=== PATIENT | female | born 1975 | race Caucasian/White ===

== ENCOUNTER 2025-06-23 10:39 | Outpatient (AMB) | payer OTHER, SELFPAY ==
--- NOTE | 2025-06-23 11:24 | HO.NEPHOV_ITS ---
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 She has been a resident of [place] until she moved to [place] recently. 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 She never had renal issues in the past. Her PCP had put her on ACEI at sometime for some reason she could not identify. She continued to take it. She continues to have intermittent dizziness and it has been happening since Dec. She has not had insurance for 3 months and had not had any blood work or physician visits. Since she moved to [place] and started working she has insurance and has a PCP. Recently she had dizziness with low BP and tachycardia. She went to Urgent care who referred her to ER where she was found to have MISSY and was admitted in [facility] for 2 days. She had her ACEI held and was given fluids with improvement in renal function. She was D/Jose J and is coming in today for consultation for MISSY. She does not have edema, hematuria, hearing deficits, CAD, CHF, CVA, PAD, flank pain, nausea, vomiting, diarrhea, sinusitis, recent antibiotic intake, sore throat, epistaxis , photosensitivity , skin rashes , excess NSAID intake or any other systemic complaints. She has a diagnosis of Rheumatoid arthritis and has been on methotrexate for a few years. She also has been on Zepbound for sometime [facility] Medical History (Updated 06/23/25 @ 11:56 by Rafy Arnett MD) Solitary kidney, congenital Surgical History (Updated 06/23/25 @ 11:27 by Ramona Saenz MA) History of foot surgery H/O arthroscopic knee surgery S/P cholecystectomy Family History (Updated 06/23/25 @ 11:26 by Ramona Saenz MA) Mother Kidney disease Father Heart disease Social History (Updated 06/23/25 @ 11:26 by Ramona Saenz MA) Alcohol intake: never Patient Tobacco Use Status: Never used Tobacco Review of Systems Const All systems reviewed & are unremarkable except as noted in HPI and below Physical Exam Vital Signs: Last Vital Signs Pulse 96 06/23/25 11:33 BP 100/80 06/23/25 11:33 Pulse Ox 98 06/23/25 11:33 Oxygen Delivery Method Room Air 06/23/25 11:33 BMI result Body Mass Index 30.1 Const General: comfortable and no acute distress Orientation/consciousness: patient oriented x3 HEENT Head: Yes normocephalic Mouth: Normal oral and palatal mucosa present Eyes EOM: EOMs intact bilaterally Neck Neck: Yes supple Resp Auscultation: clear to auscultation bilaterally Cardio Jugular venous distension: no JVD Rate: regular rate GI Palpation (GI): Soft to palpation Auscultation: normal bowel sounds General: Yes no CVA tenderness Back/Spine/Pelvis Back: no CVA tenderness Skin General skin exam: no rashes or lesions noted Neuro General: patient oriented x3 and moves all extremities Extrem General: Yes no pedal edema Assessment & Plan Assessment & Plan (1) Solitary kidney, congenital: Code(s): Q60.0 - Renal agenesis, unilateral Category: Medical (2) MISSY (acute kidney injury): Code(s): N17.9 - Acute kidney failure, unspecified Category: Medical Plan MISSY likely due to tubular injury. UO good. Recently had imaging( CT scan) which did not show any obstruction. GN is in the differential given recurrent MISSY. Missy induced by Zepbound and crystal deposition by MTX is in the differential. ACEI is on hold. No NSAID's. Continue good hydration. Reduce Metoprolol to 12.5 mg bid. Hold Zepbound for now. W/U ordered. May need renal biopsy if her renal function does not settle to normal. All questions answered. F/U given Orders: Orders UA and rflx microscopic 2 Weeks N17.9 - Acute kidney failure, unspecified, Q60.0 - Renal agenesis, unilateral Calcium 2 Weeks N17.9 - Acute kidney failure, unspecified, Q60.0 - Renal agenesis, unilateral Blood Urea Nitrogen 2 Weeks N17.9 - Acute kidney failure, unspecified, Q60.0 - Renal agenesis, unilateral Creatinine 2 Weeks N17.9 - Acute kidney failure, unspecified, Q60.0 - Renal agenesis, unilateral Hepatitis C Antibody Reflex 2 Weeks N17.9 - Acute kidney failure, unspecified, Q60.0 - Renal agenesis, unilateral Anti DNA DS Antibody 2 Weeks N17.9 - Acute kidney failure, unspecified, Q60.0 - Renal agenesis, unilateral Proteinase 3 PR3 Antibodies 2 Weeks N17.9 - Acute kidney failure, unspecified, Q60.0 - Renal agenesis, unilateral Anti Glomerular Basement Memb 2 Weeks N17.9 - Acute kidney failure, unspecified, Q60.0 - Renal agenesis, unilateral Phospholipase A2 Receptor Pnl 2 Weeks N17.9 - Acute kidney failure, unspecified, Q60.0 - Renal agenesis, unilateral Protein Creatinine Ratio, Ur 2 Weeks N17.9 - Acute kidney failure, unspecified, Q60.0 - Renal agenesis, unilateral Electrolytes 2 Weeks N17.9 - Acute kidney failure, unspecified, Q60.0 - Renal agenesis, unilateral Hepatitis B Surface Antigen 2 Weeks N17.9 - Acute kidney failure, unspecified, Q60.0 - Renal agenesis, unilateral Hepatitis B Core Antibody 2 Weeks N17.9 - Acute kidney failure, unspecified, Q60.0 - Renal agenesis, unilateral Myeloperoxidase Antibody 2 Weeks N17.9 - Acute kidney failure, unspecified, Q60.0 - Renal agenesis, unilateral Complement C3 2 Weeks N17.9 - Acute kidney failure, unspecified, Q60.0 - Renal agenesis, unilateral Complement C4 2 Weeks N17.9 - Acute kidney failure, unspecified, Q60.0 - Renal agenesis, unilateral Immunofixation Pnl, Serum 2 Weeks N17.9 - Acute kidney failure, unspecified, Q60.0 - Renal agenesis, unilateral Coding Level of Care Code New Pt Level 4 (53949) Diagnoses Solitary kidney, congenital Q60.0 MISSY (acute kidney injury) N17.9
--- OUTSIDE RECORDS SUMMARY | 2025-06-23 11:26 | XMS_ITS | Clinical Summary ---
Author Organization [facility] Address [address] [place] [id number] Care Team Providers Care [employer] Name Role Phone Pcp, No Primary Care Provider Unavailabl e Allergies Active Allergy Reactions Criticality Noted Date Comments Cefaclor Rash/Dermatitis Low 05/18/2024 Penicillins Hives,Rash/Dermatitis Medium 05/18/2024 Allergic to amoxicillin, penicillin, ampicillin Medications albuterol (PROVENTIL HFA; VENTOLIN HFA) 108 (90 Base) MCG/ACT inhaler Inhale 1 puff. 02/17/2025 Active lisinopril (PRINIVIL,ZeSTRI L) 10 MG tablet Take 10 mg by mouth daily. 03/18/2025 Active metoPROLOL SUCCINATE (TOPROL-XL) 25 MG 24 hr tablet Take 25 mg by mouth daily. 03/21/2025 Active rosuvastatin (CRESTOR) 10 MG tablet Take 10 mg by mouth daily. Active traMADol (ULTRAM) 50 MG tablet Take 50 mg by mouth 4 times daily (every 6 hours) as needed. Active Encounters Date Type Department Care Team Description 05/27/2025 10:00 AM EDT Office Visit [facility] [address] [place], [place] [id number] Bhupinder Coffman MD Nguyen, Nam V, PA Hypotension, unspecified hypotension type (Primary Dx); Palpitations; Dizziness 05/27/2025 Travel from Last 3 Months Social History Tobacco Use Types Packs/Day Years Used Date Smoking Tobacco: Never Assessed Comments Unknown Sex and Gender Information Value Date Recorded Sex Assigned at Not on file Legal Sex Female 9:58 AM EDT Gender Identity Not on file Sexual Orientation Not on file Last Filed Vital Signs Vital Sign Reading Time Taken Comments Blood Pressure 76/57 05/27/2025 10:10 AM EDT BETO SOLIS Pulse 133 05/27/2025 10:10 AM EDT Temperature 36.7 C (98 F) 05/27/2025 10:10 AM EDT Respiratory Rate - - Oxygen Saturation 99% 05/27/2025 10:10 AM EDT Inhaled Oxygen Concentration - - Weight - - Height - - Body Mass Index - - Plan of Treatment Health Maintenance Due Date Last Done Comments Hepatitis C Virus Screening 1976 HIV Screening 1989 DTaP/Tdap/Td Vaccines (1 - Tdap) 1995 Hepatitis B Vaccines (1 of 3 - 19+ 3-dose series) 1995 Pap Smear (Ages 21-65) 1997 Mammogram 2016 Colonoscopy 2021 COVID-19 Vaccine ( - 2023-2 5 season) 2024 Influenza Vaccine 06/24/2025 Pneumococcal Vaccine: Pediat michael (0-5 Years) and At-Risk Patients (6 to 49 Years) Aged Out No longer eligible b ased on patient's age to complete this topic Procedures Procedure Name Priority Date/Time Associated Diagnosis Comments ECG 12-LEAD Routine 05/27/2025 10:23 AM EDT Palpitations POCT GLUCOSE, FINGERSTICK (CHARGE) Routine 05/27/2025 10:23 AM EDT Palpitations Dizziness from Last 3 Months Results * POCT Glucose, Fingerstick (05/27/2025 10:23 AM EDT) POC Glucose 99 MG/DL Lot Number 0 Sap Business Analyst Pass Pass Blood 05/27/2025 10:2 3 AM EDT JAIRO Ojeda POINT OF CARE TEST ORDERABLES F inal Result * (ABNORMAL) ECG 12 lead (05/27/2025 10:23 AM EDT) 05/27/2025 10:2 3 AM EDT Impressions Bhanu Walker PA - 05/27/2025 10:23 AM EDT Sinus tachycardia with a rate of 116. No ST elevations or depressions. No T wave inversions. JAIRO Ojeda ECG ORDERABLES Final Result from Last 3 Months Insurance [employer] HMO/POS Care Teams [employer] Relationship Specialty Start Date End Date Pcp, No PCP - General General Medicine 05/27/25
--- OUTSIDE RECORDS SUMMARY | 2025-06-23 11:26 | XMS_ITS | Clinical Summary ---
Author Organization [employer] Address [address] [place] [address] [address] [place] [address] Care Team Providers Care Marketing Researcher Name Role Phone Provider, Not In System Primary Care Provider Un available Social History Tobacco Use Types Packs/Day Years Used Date Smoking Tobacco: Never Assessed Comments Unknown Sex and Gender Information Value Date Recorded Sex Assigned at Female 09/20/2022 5:46 PM EDT Legal Sex Female 5:46 PM EDT Gender Identity Female 09/20/2022 5:46 PM EDT Sexual Orientation Straight 09/20/2022 5: 46 PM EDT Last Filed Vital Signs Vital Sign Reading Time Taken Comments Blood Pressure 156/101 05/20/2022 9:00 AM EDT Pulse 58 05/20/2022 9:00 AM EDT Temperature - - Respiratory Rate - - Oxygen Saturation 98% 05/20/2022 9:00 AM EDT Inhaled Oxygen Concentration - - Weight 85.8 kg (189 lb 4 oz) 05/20/2022 9:00 AM EDT Height 154.9 cm (5' 1 ) 05/20/2022 9:00 AM EDT Body Mass Index 35.76 05/20/2022 9:00 AM EDT Plan of Treatment Health Maintenance Due Date Last Done Comments CT Colonography 1976 Colonoscopy 1976 Colorectal Cancer Screening 1976 Depression Screening 1976 FIT DNA/Cologuard 1976 FIT 1976 FOBT 1976 Sigmoidoscopy 1976 Disability Screening 1976 Alcohol/Substance Use Screening 1988 Tobacco Screening 1988 Family Planning (PISQ) 1991 Hepatitis B Vaccines (1 of 3 - 19+ 3-dose series) 1995 Mammogram 05/20/2024 05/20/2022, 01/22, 07/13/2019, Additional history exists COVID-19 Vaccine ( season) 2024 03/21/2021, 02/05/2021 Pap Smear 05/20/2025 05/20/2022 Influenza Vaccine (#1) 2025 10/06/2019, 2016 Zoster Vaccines (1 of 2) 2026 Cervical Cancer Screening 05/20/2027 HPV/Cotest 05/20/2027 05/20/2022, 04/28/2017 DTaP/Tdap/Td Vaccines (2 - Td or Tdap) 04/23/2032 04/23/2022, 03/20/2017 RSV Patients and Patients Aged 60 years or older (1 - 1-dose 75+ series) 2051 HIB Vaccines Aged Out No longer eligi ble based on patient's age to complete this topic HPV Vaccines Aged Out No longer eligi ble based on patient's age to complete this topic Hepatitis A Vaccines Aged Out No long er eligible based on patient's age to complete this topic IPV Vaccines Aged Out No longer eligi ble based on patient's age to complete this topic Meningococcal B Vaccine Aged Out No l onger eligible based on patient's age to complete this topic Meningococcal Vaccine Aged Out No sam estefany eligible based on patient's age to complete this topic Pneumococcal Vaccine: Pediatrics (0 to 5 Years) and At-Risk Patients (6 to 49) Years Aged Out No longer eligible based on patient's age to complete this topic RSV under 20 months Aged Out No longe r eligible based on patient's age to complete this topic Rotavirus Vaccines Aged Out No longer eligible based on patient's age to complete this topic Procedures Procedure Name Priority Date/Time Associated Diagnosis Comments ZZZ HISTORICAL HPV HIGH RISK DNA WITH REFLEX TO GENOTYPE Routine 05/20/2022 4:10 PM EDT ZZZ HISTORICAL PAP SMEAR Routine 05/20/2022 4:10 PM EDT BI MAMMOGRAM SCREENING BILATERAL Routine 05/20/2022 11:17 AM EDT from Last 3 Months or Most Recently Relevant to Health Maintenance Results * HPV HIGH RISK DNA WITH REFLEX TO GENOTYPE (05/20/2022 4:10 PM EDT) HPV, High-Risk Not Detected Not Detected [facility] 05/20/2022 4:10 PM EDT us Albina Church ANP-BC HISTORICAL/NON ORDE RABLE LABS Final Result [facility] [address] * PAP SMEAR (05/20/2022 4:10 PM EDT) Clinical History None [facility] Patient Status None [facility] Specimen Adequacy Satisfactory for evaluation, endocervical/trans formation zone component present [facility] Specimen Adequacy Partially obscuring blood and inflammation [facility] High Risk Factors None [facility] HPV Reflex? No [facility] Interpretation Negative for intraepithelial lesion or malignancy [facility] Interpretation [facility] Genotype Reflex No [facility] LMP Not given [facility] Screening or Diagnostic Screening [facility] Case Report Pap Test Case: [id number] [facility] Case Report Authorizing Provider: Albina Vela MD Collected: 05/20/2022 1610 [facility] Case Report Ordering Location: [facility] Received: 05/21/2022 1610 [facility] Case Report [place] [facility] Case Report First Screen: Josefina Borrero [facility] Case Report CT(ASCP) [facility] Case Report Specimen: ThinPrep Pap Test with Imaging, Cervix [facility] Disclaimer SEE NOTES [facility] Comment:The Pap test is a sc reening test which carries an inherent false negative rate. These test results should be correlated with the patient's clinical findings and history.This Pap test was processed using an automated screening system. This Pap test result should be interpreted in the context of the latest ASCCP Management Consensus Guidelines. For information about patient management, health care providers are encouraged to refer to https://www.asccp.org/management-guidelines 05/20/2022 4:10 PM EDT us Albina Church ANP-BC HISTORICAL/NON ORDE RABLE LABS Final Result [facility] [place] [address], [place] * BI MAMMOGRAM SCREENING TOMOSYNTHESIS BILATERAL (05/20/2022 11:17 AM EDT) Anatomical Region Laterality Modality Breast Bilateral Mammography 05/20/2022 11:1 7 AM EDT Narrative 05/20/2022 1:03 PM EDT Refer to Fovea for result details Legacy Procedure: BI MAMMOGRAM SCREENING TOMOSYNTHESIS BILATERAL Procedure Note Provider, Araseli, - 03/05/2023 Refer to Fovea for result details Legacy Procedure: BI MAMMOGRAM SCREENING TOMOSYNTHESIS BILATERAL us Carmencita Waterman MD IMG BI PROCEDURES Final Result from Last 3 Months or Most Recently Relevant to Health Maintenance Care Teams Marketing Researcher Relationship Specialty Start Date End Date Provider, Not In System PCP - General Family Medicine 12/31/23
--- OUTSIDE RECORDS SUMMARY | 2025-06-23 11:26 | XMS_ITS | Clinical Summary ---
Author Organization [facility] Address [address] [place] [phone] Phone Care Team Providers Care Mold Worker Name Role Phone Saul Pinto DO Primary Care Provider [phone] Saul Pinto DO Unavailable [phone] Catarina Crain MD Unavailable [phone] Myriam Reid PA-C Unavailable [phone] Allergies Active Allergy Reactions Criticality Noted Date Comments Cefaclor Rash Low 05/18/2024 Penicillins Hives Medium 05/18/2024 Allergic to amoxicillin, penicillin, ampicillin Medications doxycycline hyclate (DORYX) 100 MG tablet Take 100 mg by mouth 2 (two) times a day. Active rosuvastatin (CRESTOR) 10 MG tablet Take 10 mg by mouth daily. Active predniSONE (DELTASONE) 10 MG tablet Take 10 mg by mouth daily with breakfast. Active traMADoL (ULTRAM) 50 mg tablet Take 50 mg by mouth every 6 (six) hours as needed for pain (specific location in comments). Active Social History Tobacco Use Types Packs/Day Years Used Date Smoking Tobacco: Every Day Child or Family Care Answer Date Record ed Do you have problems with on e of the following making it difficult for you to work, study, or receive health care? No 05/18/2024 Education Answer Date Recorded Are you interested in help w ith more adult education (for example, completing high school, GED, job training, learning the [place] language, technical skills, or developing parenting skills)? No 05/18/2024 Are you concerned about learning? Not on file 05/18/2024 No 05/18/2024 Yes 05/18/2024 Food Answer Date Recorded Within the past 6 months we worried whether our food would run out before we got money to buy more. Never True 05/18/2024 Within the past 6 months the food we bought just didn't last and we didn't have enough money to get more. Never True Residential Stability Answer Date Recor ded What is your housing situation today? I have naima sing 05/18/2024 How many times have you move d in the past 12 months? Zero (I did not move) 05/18/2024 Paying for Meds Answer Date Recorded Do you have trouble paying for medicines? I cleopatra se not to answer 05/18/2024 Paying Utility Bills Answer Date Record ed Do you have trouble paying y our heating or electricity bill? I choose not to answer 05/18/2024 Transportation Answer Date Recorded Has the lack of transportati on kept you from medical appointments or from getting medications? No 05/18/2024 Digital Access Answer Date Recorded No 04/30/2024 No 04/30/2024 Reliable internet access at home? Not on file 04/30/2024 Device with a working camera? Not on file Comments Unknown Sex and Gender Information Value Date Recorded Sex Assigned at Not on file Legal Sex Female 1:21 PM EST Gender Identity Not on file Sexual Orientation Not on file Last Filed Vital Signs Vital Sign Reading Time Taken Comments Blood Pressure 181/89 05/18/2024 11:01 AM EDT Pulse 69 05/18/2024 11:01 AM EDT Temperature 36.3 C (97.4 F) 05/18/2024 11:01 AM EDT Respiratory Rate 18 05/18/2024 11:01 AM EDT Oxygen Saturation 100% 05/18/2024 11:01 AM EDT Inhaled Oxygen Concentration - - Weight 96.3 kg (212 lb 4.9 oz) 05/18/2024 11:01 AM EDT Height 154.9 cm (5' 0.98 ) 05/18/2024 11:01 AM E DT Body Mass Index 40.14 05/18/2024 11:01 AM EDT Plan of Treatment Health Maintenance Due Date Last Done Comments Adult Td,Tdap Booster 1976 LIPID PANEL 1976 DEPRESSION SCREENING 1988 SMOKING Hx and SMOKELESS TOBACCO SCREENING 1989 HEPATITIS C SCREENING 1994 HIV ONE-TIME SCREENING (18-6 5 YEARS) 1994 PNEUMOCOCCAL VACCINES (0-49 years) (1 of 2 - PCV) 1995 PAP SMEAR 1997 SCREENING FOR DIABETES 2011 COLOGUARD 2021 COLONOSCOPY 2021 COLORECTAL CANCER SCREENING 2021 FIT TEST 2021 FOBT 2021 SIGMOIDOSCOPY 2021 VIRTUAL COLONOSCOPY 2021 MAMMOGRAM 05/20/2024 05/20/2022, 05/20/2022, 02/06/2021 COVID-19 VACCINE (1 - 2023-2 5 season) 2024 HEPATITIS A VACCINES Aged Out No long er eligible based on patient's age to complete this topic HIB VACCINES Aged Out No longer eligi ble based on patient's age to complete this topic MENINGOCOCCAL VACCINES (ACWY) Aged Out No longer eligible based on patient's age to complete this topic MENINGOCOCCAL VACCINES (B) Aged Out N o longer eligible based on patient's age to complete this topic Medical Devices Not on file Insurance [facility] [address] [address] [place] [address] [facility] Care Teams Mold Worker Relationship Specialty Start Date End Date Saul Pinto DO [address] [place] [address] PCP - General Family Medicine 04/30/24 Saul Pinto DO [address] [place] [address] Referring Physician Family Medicine 04/30/24 Catarina Crain MD [address] [place] [address] [email or web address] Primary Oncologist Medical Oncology 04/30/24 Myriam Reid PA-C [address] [place] [id number] [email or web address] 04/30/24 Additional Source Comments The information contained in this document represents components of the legal health record. It is not the complete legal health record.[facility]
--- OUTSIDE RECORDS SUMMARY | 2025-06-23 11:26 | XMS_ITS | Clinical Summary ---
Author Organization [facility] Address [address] [place] [address] Phone Care Team Providers Care Balancer Name Role Phone Naima Ashraf NP Primary Care Provider [phone] Allergies Active Allergy Reactions Criticality Noted Date Comments Amoxicillin 05/27/2025 Ampicillin 05/27/2025 Cefaclor 05/27/2025 Penicillins 05/27/2025 Medications metoprolol tartrate (LOPRESSOR) 25 mg tablet Take 1 tablet (25 mg total) by mouth 2 (two) times a day. Active tirzepatide, weight loss, (Zepbound) 12.5 mg/0.5 mL injection Inject 0.5 mL (12.5 mg total) under the skin every 7 (seven) days. Active methotrexate 2.5 mg tablet Take 6 tablets (15 mg total) by mouth 1 (one) time per week Follow directions carefully, and ask to explain any part you do not understand. Take exactly as directed. Active cyclobenzaprin e (FLEXERIL) 10 mg tablet Take 1 tablet (10 mg total) by mouth at bedtime. Active folic acid (FOLVITE) 1 mg tablet Take 2 tablets (2 mg total) by mouth 1 (one) time each day. Active rosuvastatin (CRESTOR) 10 mg tablet Take 1 tablet (10 mg total) by mouth at bedtime. Active famotidine (PEPCID) 20 mg tablet Take 1 tablet (20 mg total) by mouth 2 (two) times a day. Active cyanocobalamin (VITAMIN B-12) 1,000 mcg tablet Take 1 tablet (1,000 mcg total) by mouth 1 (one) time each day. 30 each 11 05/30/20 26 Active lisinopriL (PRINIVIL,ZEST RIL) 10 mg tablet Take 1 tablet (10 mg total) by mouth 1 (one) time each day. 05/29/20 25 Discontinu ed(Stop Taking at Discharge) Active Problems Problem Noted Date Diagnosed Date MISSY (acute kidney injury) ([facility] V24) 05/27/20 25 Encounters Date Type Department Care Team Description 05/27/2025 11:33 AM EDT - 05/29/2025 12:30 PM EDT Hospital Encounter [facility] Med Surg [address] [place] [address] Alexandra Johnson MD MISSY (acute kidney injury) ([facility] V24) (Primary Dx); Hyponatremia Discharge Disposition: Home or Self Care from Last 3 Months Surgical History Surgery Date Site/Laterality Comments CHOLECYSTECTOMY TONSILLECTOMY Medical History Medical History Date Comments Asthma Tachycardia Renal agenesis Rheumatoid arthritis ([facility] V24, [facility] V28) Family History Medical History Relation Name Comments Cardiomyopathy Father Kidney disease Mother Relation Name Status Comments Father Mother Social History Tobacco Use Types Packs/Day Years Used Date Smoking Tobacco: Former Cigarettes 1 30 1 01/12/1992 - 2022 Smokeless Tobacco: Never Alcohol Use Standard Drinks/Week Comments Never 0 (1 standard drink = 0.6 oz pur e alcohol) Interpersonal Safety Answer Date Record ed Physical Abuse 05/27/2025 Verbal Abuse 05/27/2025 Comments Unknown Sex and Gender Information Value Date Recorded Sex Assigned at Female 05/27/2025 5:24 PM EDT Legal Sex Female 11:18 AM EDT Gender Identity Female 05/27/2025 5:24 PM EDT Sexual Orientation Lesbian or [place] 05/27/2025 5: 24 PM EDT 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 Not on file Not on file Obstetrics History Last Filed Vital Signs Vital Sign Reading Time Taken Comments Blood Pressure 117/71 05/29/2025 7:40 AM EDT Pulse 87 05/29/2025 7:40 AM EDT Temperature 36.2 C (97.2 F) 05/29/2025 7:40 AM EDT Respiratory Rate 16 05/29/2025 7:40 AM EDT Oxygen Saturation 100% 05/29/2025 7:40 AM EDT Inhaled Oxygen Concentration - - Weight 75.2 kg (165 lb 12.6 oz) 05/27/2025 5:06 PM EDT Height 154.9 cm (5' 1 ) 05/27/2025 11:2 8 AM EDT Body Mass Index 31.32 05/27/2025 11:28 AM EDT Plan of Treatment Health Maintenance Due Date Last Done Comments COVID-19 Vaccine (#1) 1981 DTaP,Tdap,and Td Vaccines (1 - Tdap) 1995 Cervical Cancer Screening: P ap Smear 1997 Breast Cancer Screening 05/20/2024 05/20/2022 Depression Screening 11/24/2024 Colorectal Cancer Screening: Colonoscopy 05/27/2025 HIV Screening 05/27/2025 Hepatitis C Screening 05/27/2025 Social Influencers of Health Screening 05/27/2025 Influenza Vaccine (#1) 2025 Hepatitis B Vaccines (3 of 3 - 19+ 3-dose series) 10/28/2025 05/26/2025, 04/28/2025 HIB Vaccines Aged Out No longer eligi [...] on patient's age to complete this topic MMR Vaccines Aged Out No longer eligi ble based on patient's age to complete this topic Meningococcal ACWY Vaccine Aged Out N o longer eligible based on patient's age to complete this topic Meningococcal B Vaccine Aged Out No l onger eligible based on patient's age to complete this topic Pneumococcal Vaccine: Pediatrics (0 to 5 Years) and At-Risk Patients (6 to 49 Years) Aged Out No longer eligible b ased on patient's age to complete this topic RSV Immunization Patients Under 20 months Aged Out No longer eligible b ased on patient's age to complete this topic Varicella Vaccines Aged Out No longer eligible based on patient's age to complete this topic Procedures Procedure Name Priority Date/Time Associated Diagnosis Comments LAVENDER - EDTA Routine 05/29/2025 6:35 AM EDT EXTRA TUBES Routine 05/29/2025 6:35 AM EDT MAGNESIUM Routine 05/29/2025 6:35 AM EDT BASIC METABOLIC PANEL Routine 05/29/2025 6:35 AM EDT CREATINE KINASE STAT Add-on 05/28/2025 6:20 AM EDT BASIC METABOLIC PANEL Routine 05/28/2025 6:20 AM EDT CBC WITH AUTO DIFFERENTIAL Routine 05/28/2025 6:19 AM EDT IRON AND TIBC Routine 05/28/2025 6:19 AM EDT VITAMIN B12 AND FOLATE Routine 05/28/2025 6:19 AM EDT CBC AND DIFFERENTIAL Routine 05/28/2025 6:19 AM EDT C4 COMPLEMENT STAT 05/28/2025 6:16 AM EDT C3 COMPLEMENT STAT 05/28/2025 6:16 AM EDT MISCELLANEOUS LAB TEST Routine 05/27/2025 7:58 PM EDT ANTI-NEUTROPHILIC CYTOPLASMIC ANTIBODY Routine 05/27/2025 7:58 PM EDT ANTI-DNA ANTIBODY, DOUBLE-STRANDED Routine 05/27/2025 7:58 PM EDT CHAD IFA WITH TITER AND PATTERN Routine 05/27/2025 7:58 PM EDT RHEUMATOID FACTOR Routine 05/27/2025 7:5 8 PM EDT LACTATE, WITH REFLEX Routine 05/27/2025 4:25 PM EDT URINALYSIS WITH REFLEX MICROSCOPIC AND CULTURE STAT 05/27/2025 2:23 PM EDT URINALYSIS WITH REFLEX MICROSCOPIC AND CULTURE STAT 05/27/2025 2:[address] ABDOMEN PELVIS WO CONTRAST STAT 05/27/2025 1:50 PM EDT C-REACTIVE PROTEIN STAT Add-on 05/27/2025 11 :43 AM EDT MAGNESIUM STAT Add-on 05/27/2025 11:43 AM EDT CBC WITH AUTO DIFFERENTIAL STAT 05/27/2025 11:43 AM EDT TROPONIN I HIGH SENSITIVITY STAT 05/27/2025 11:43 AM EDT COMPREHENSIVE METABOLIC PANEL STAT 05/27/2025 11:43 AM EDT CBC AND DIFFERENTIAL STAT 05/27/2025 11:43 AM EDT ECG 12-LEAD Routine 05/27/2025 11:41 AM EDT from Last 3 Months Results * Lavender tube (05/29/2025 6:35 AM EDT) Extra Tube Hold for add-ons. 05/29/2025 9:01 AM EDT [facility] Comment:Auto resulted. Blood Venous blood specimen / Unknown 05/29/2025 6:35 AM EDT 05/29/2025 7:56 AM EDT us Alexandra Johnson MD LAB BLOOD ORDERABLES Fi nal Result [facility] [address] [place] [address], [place] [phone] * Magnesium (05/29/2025 6:35 AM EDT) Only the most recent of2 resultswithin the time period is included. [facility] Magnesium 2.2 1.7 - 2.8 mg/dL LAB CHEMISTRY METHOD 05/29/2025 8:38 AM EDMT. [facility] Blood Venous blood specimen / Unknown Venipuncture / Unknown 05/29/2025 6:35 AM EDT 05/29/2025 7:56 AM EDT Alexandra Johnson MD LAB BLOOD ORDERABLES nal Result [facility] [address] [place] [address], * (ABNORMAL) Basic metabolic panel (05/29/2025 6:35 AM EDT) Only the most recent of2 resultswithin the time period is included. [facility] Sodium 137 135 - 145 mmol/L LAB CHEMISTRY METHOD 05/29/2025 8:38 AM [facility] Potassium 4.1 3.5 - 5.1 mmol/L LAB CHEMISTRY METHOD 05/29/2025 8:38 AM [facility] Chloride 103 98 - 107 mmol/L LAB CHEMISTRY METHOD 05/29/2025 8:38 AM [facility] CO2 27 24 - 32 mmol/L LAB CHEMISTRY METHOD 05/29/2025 8:38 AM [facility] Anion Gap 7 5 - 14 LAB CHEMISTRY METHOD 05/29/2025 8:38 AM [facility] Glucose 73 70 - 199 mg/dL LAB CHEMISTRY METHOD 05/29/2025 8:38 AM [facility] BUN 20(H) 7 - 17 mg/dL LAB CHEMISTRY METHOD 05/29/2025 8:38 AM EDT [facility] Creatinine 1.85(H) 0.50 - 1.00 mg/dL LAB CHEMISTRY METHOD 05/29/2025 8:38 AM EDT [facility] eGFR 33(L) >=60 mL/min/1. 73m2 LAB CHEMISTRY METHOD 05/29/2025 8:38 AM EDT [facility] Comment:Calculation based on the Chronic Kidney Disease Epidemiology Collaboration (CKD-EPI) equation refit without adjustment for race. BUN/Creatinine Ratio 10.8(L) 12.0 - 20.0 LAB CHEMISTRY METHOD 05/29/2025 8:38 AM EDT [facility] Calcium 8.8 8.4 - 10.2 mg/dL LAB CHEMISTRY METHOD 05/29/2025 8:38 AM EDT [facility] Blood Venous blood specimen / Unknown Venipuncture / Unknown 05/29/2025 6:35 AM EDT 05/29/2025 7:56 AM EDT us Alexandra Johnson MD LAB BLOOD ORDERABLES Fi nal Result [facility] [address] [place] [address], [place] [phone] * Creatine kinase (05/28/2025 6:20 AM EDT) Pathologist [facility] Total CK 40 30 - 135 unit/L LAB CHEMISTRY METHOD 05/28/2025 11:24 AM EDT [facility] Blood Venous blood specimen / Unknown Venipuncture / Unknown 05/28/2025 6:20 AM EDT 05/28/2025 7:21 AM EDT us Alexandra Johnson MD LAB BLOOD ORDERABLES Fi nal Result [facility] [address] [place] [address], [place] [phone] * (ABNORMAL) Vitamin B12 and folate (05/28/2025 6:19 AM EDT) [facility] Vitamin B-12 149(L) 180 - 914 pcg/mL LAB CHEMISTRY METHOD 05/28/2025 2:23 PM EDT [facility] Comment:B12 Indeterminate Ra nge: 145-179 pg/mL Folate >24.0 >=3.0 ng/ml LAB CHEMISTRY METHOD 05/28/2025 2:23 PM EDT [facility] Blood Venous blood specimen / Unknown Venipuncture / Unknown 05/28/2025 6:19 AM EDT 05/28/2025 7:21 AM EDT Alexandra Johnson MD LAB BLOOD ORDERABLES nal Result Performing Organization Address [facility]/ZIP Co de Phone Number [facility] [address] [place] [address], [place] [phone] * (ABNORMAL) CBC auto differential (05/28/2025 6:19 AM EDT) Only the most recent of2 resultswithin the time period is included. [facility] WBC 4.8 4.0 - 10.5 K/mcL LAB HEMETOLOGY METHOD 05/28/2025 7:39 AM EDT [facility] RBC 2.48(L) 4.20 - 5.40 M/mcL LAB HEMETOLOGY METHOD 05/28/2025 7:39 AM EDT [facility] Hemoglobin 8.2(L) 12.5 - 16.0 g/dL LAB HEMETOLOGY METHOD 05/28/2025 7:39 AM EDT [facility] Hematocrit 24.5(L) 37.0 - 47.0 % LAB HEMETOLOGY METHOD 05/28/2025 7:39 AM [facility] MCV 98.8 78.0 - 100.0 FL LAB HEMETOLOGY METHOD 05/28/2025 7:39 AM [facility] MCH 33.1(H) 25.0 - 33.0 pcg LAB HEMETOLOGY METHOD 05/28/2025 7:39 AM [facility] MCHC 33.5 32.0 - 36.0 g/dL LAB HEMETOLOGY METHOD 05/28/2025 7:39 AM [facility] RDW 14.8 12.1 - 16.2 % LAB HEMETOLOGY METHOD 05/28/2025 7:39 AM [facility] Platelets 283 150 - 450 K/mcL LAB HEMETOLOGY METHOD 05/28/2025 7:39 AM [facility] MPV 9.2 7.4 - 11.4 FL LAB HEMETOLOGY METHOD 05/28/2025 7:39 AM [facility] Neutrophils Relative 53.6 44.0 - 74.0 % LAB HEMETOLOGY METHOD 05/28/2025 7:39 AM [facility] Lymphocytes Relative 36.6 20.0 - 48.0 % LAB HEMETOLOGY METHOD 05/28/2025 7:39 AM [facility] Monocytes Relative 4.2 2.0 - 12.0 % LAB HEMETOLOGY METHOD 05/28/2025 7:39 AM [facility] Eosinophils Relative 5.0 0.0 - 6.0 % LAB HEMETOLOGY METHOD 05/28/2025 7:39 AM [facility] Basophils Relative 0.4 0.0 - 2.0 % LAB HEMETOLOGY METHOD 05/28/2025 7:39 AM [facility] Neutrophils Absolute 2.58 1.80 - 7.80 K/mcL LAB HEMETOLOGY METHOD 05/28/2025 7:39 AM EDT [facility] Lymphocytes Absolute 1.76 1.00 - 3.20 K/mcL LAB HEMETOLOGY METHOD 05/28/2025 7:39 AM EDT [facility] Monocytes Absolute 0.20 0.00 - 0.80 K/mcL LAB HEMETOLOGY METHOD 05/28/2025 7:39 AM EDT [facility] Eosinophils Absolute 0.24 0.00 - 0.50 K/mcL LAB HEMETOLOGY METHOD 05/28/2025 7:39 AM EDT [facility] Basophils Absolute <0.03 0.00 - 0.20 K/mcL LAB HEMETOLOGY METHOD 05/28/2025 7:39 AM EDT [facility] Blood Venous blood specimen / Unknown Venipuncture / Unknown 05/28/2025 6:19 AM EDT 05/28/2025 7:21 AM EDT Alexandra Johnson MD LAB BLOOD ORDERABLES Fi nal Result [facility] [address] [place] [address], [place] [phone] * (ABNORMAL) Iron and TIBC (05/28/2025 6:19 AM EDT) Iron 125 37 - 170 mcg/dL LAB CHEMISTRY METHOD 05/28/2025 2:01 PM EDT [facility] UIBC 80(L) 155 - 355 mcg/dL LAB CHEMISTRY METHOD 05/28/2025 2:01 PM EDT [facility] TIBC 205(L) 250 - 450 mcg/dL LAB CHEMISTRY METHOD 05/28/2025 2:01 PM EDT [facility] Iron Saturation 61(H) 20 - 45 % LAB CHEMISTRY METHOD 05/28/2025 2:01 PM EDT [facility] Blood Venous blood specimen / Unknown Venipuncture / Unknown 05/28/2025 6:19 AM EDT 05/28/2025 7:21 AM EDT us Alexandra Johnson MD LAB BLOOD ORDERABLES Fi nal Result [facility] [address] [place] [address], [place] [phone] * C3 complement (05/28/2025 6:16 AM EDT) C3 Complement 126 87 - 200 mg/dL LAB CHEMISTRY METHOD 05/28/2025 7:10 PM EDT [facility] Blood Venous blood specimen / Unknown Venipuncture / Unknown 05/28/2025 6:16 AM EDT 05/28/2025 11:07 AM EDT us Alexandra Johnson MD LAB BLOOD ORDERABLES Fi nal Result Performing Organization Address City/[facility]/ZIP Co de Phone Number [facility] [address] [place] [address], [place] [phone] * C4 complement (05/28/2025 6:16 AM EDT) C4 Complement 50 19 - 52 mg/dL LAB CHEMISTRY METHOD 05/28/2025 7:18 PM EDT [facility] Blood Venous blood specimen / Unknown Venipuncture / Unknown 05/28/2025 6:16 AM EDT 05/28/2025 11:07 AM EDT us Alexandra Johnson MD LAB BLOOD ORDERABLES Fi nal Result [facility] [address] [place] [address], [place] [phone] * CHAD IFA with titer and pattern (05/27/2025 7:58 PM EDT) Pathologist [facility] Antinuclear Antibody Negative Negative 07/2025 11:[address] [facility] Comment:CHAD performed by ind irect immunofluorescence (IFA) using HEp-2 substrate. CHAD Titer TNP <1:80 Titer 06/01/2025 11:[address] [facility] CHAD Pattern TNP 06/01/2025 11:[address] [facility] Comment: Test performed at [facility], [address], [place] [address] Edelmira Sosa MD, PhD - Pacs Specialist Blood Venous blood specimen / Unknown Venipuncture / Unknown 05/27/2025 7:58 PM EDT 05/27/2025 8:08 PM EDT Alexandra Johnson MD LAB BLOOD ORDERABLES Fi nal Result [facility] [address] [place] [address] * CYCLIC CITRULLINATED PEPTIDE ANTIBODY IGG AND IGA - Miscellaneous Test (05/27/2025 7:58 PM EDT) [facility] Miscellaneous Test See Below 06/07/2025 11:[address] [facility] Comment: Cyclic Citrullinated Peptide Antibody, IgG and IgA Test Result Flag Ref Range Cyclic Citrullinated Peptide Ab, IgG/A 2 0-19 Units INTERPRETIVE INFORMATION: Cyclic Citrullinated Peptide Ab, IgG/A 19 Units or less ................... Negative 20-39 Units ........................ Weak Positive 40-59 Units ........................ Moderate Positive 60 Units or greater ................ Strong Positive A positive result for cyclic citrullinated peptide (CCP) antibodies in conjunction with consistent clinical features may be suggestive of rheumatoid arthritis (RA). Anti-CCP, IgG/IgA antibodies are present in about 66-74 percent of RA patients and have specificities of 96-99 percent. Detection of IgA antibodies in addition to the usual IgG antibodies enhances the sensitivity due to some RA patients having IgA antibodies to CCP in the absence of IgG. These autoantibodies may be present in the preclinical phase of disease, are associated with future RA development, and may predict radiographic joint destruction. Patients with weak positive results should be monitored and testing repeated. Performed by [facility] [address] [place] [id number] Javon Packer MD, PhD, Senior Front End Engineer Serum 05/27/2025 7:58 PM EDT 05/31/2025 7:41 AM EDT Alexandra Johnson MD LAB BLOOD ORDERABLES Fi nal Result [facility] [address] [place] [address] * DNA antibody, double-stranded (05/27/2025 7:58 PM EDT) [facility] Signature DNA (ds) Antibody 1.7 <10.0 IU/mL 06/01/2025 11:[address] [facility] Comment: INTERPRETATION: Negative Test performed at [facility], [address] , [place], [place] [id number] Edelmira Sosa MD, PhD - Pacs Specialist Blood Venous blood specimen / Unknown Venipuncture / Unknown 05/27/2025 7:58 PM EDT 05/27/2025 8:08 PM EDT Alexandra Johnson MD LAB BLOOD ORDERABLES Fi nal Result [facility] [address] [place] [address] * Anti-neutrophilic cytoplasmic antibody (05/27/2025 7:58 PM EDT) P-ANCA <1:20 <1:20 Titer 06/01/2025 2:03 PM EDT [facility] C-ANCA <1:20 <1:20 Titer 06/01/2025 2:03 PM EDT [facility] Comment: Test performed at [facility], [address] , [place] [address] Edelmira Sosa MD, PhD - Pacs Specialist Blood Venous blood specimen / Unknown Venipuncture / Unknown 05/27/2025 7:58 PM EDT 05/27/2025 8:08 PM EDT Alexandra Johnson MD LAB BLOOD ORDERABLES Fi nal Result [facility] [address] [place] [address] * Rheumatoid factor (05/27/2025 7:58 PM EDT) Pathologist [facility] Rheumatoid Factor <10.0 <=15.0 I Unit/mL LAB CHEMISTRY METHOD 05/28/2025 2:54 PM EDT [facility] Blood Venous blood specimen / Unknown Venipuncture / Unknown 05/27/2025 7:58 PM EDT 05/27/2025 8:08 PM EDT us Alexandra Johnson MD LAB BLOOD ORDERABLES Fi nal Result [facility] [address] [place] [address], [place] [phone] * Lactate, with reflex (05/27/2025 4:25 PM EDT) Pathologist [facility] LACTIC ACID 0.9 <=2.0 mmol/L LAB BLOOD GAS METHOD 05/27/2025 4:32 PM EDT [facility] Blood Venous blood specimen / Unknown Venipuncture / Unknown 05/27/2025 4:25 PM EDT 05/27/2025 4:28 PM EDT Alexandra Johnson MD LAB BLOOD ORDERABLES Fi nal Result [facility] [address] [place] [address], [place] [phone] * (ABNORMAL) Urinalysis with reflex microscopic and culture (05/27/2025 2:23 PM EDT) Color, Urine Straw(A) Colorless, Yellow LAB URINALYSIS - AUTOMATED METHOD 05/27/2025 2:28 PM EDT [facility] Clarity, Urine Clear Clear LAB URINALYSIS - AUTOMATED METHOD 05/27/2025 2:28 PM EDT [facility] Specific [place] Urine <=1.005 1.005 - 1.030 LAB URINALYSIS - AUTOMATED METHOD 05/27/2025 2:28 PM EDMT. [facility] pH, Urine 5.5 5.0 - 8.0 pH LAB URINALYSIS - AUTOMATED METHOD 05/27/2025 2:28 PM EDMT. [facility] Leukocytes, Urine Trace(A) Negative WBCs/mcL LAB URINALYSIS - AUTOMATED METHOD 05/27/2025 2:28 PM EDMT. [facility] Nitrite, Urine Negative Negative LAB URINALYSIS - AUTOMATED METHOD 05/27/2025 2:28 PM EDMT. [facility] Protein, Urine Negative Negative mg/dL LAB URINALYSIS - AUTOMATED METHOD 05/27/2025 2:28 PM EDMT. [facility] Glucose, Urine Negative Negative mg/dL LAB URINALYSIS - AUTOMATED METHOD 05/27/2025 2:28 PM EDMT. [facility] Ketones, Urine Negative Negative mg/dL LAB URINALYSIS - AUTOMATED METHOD 05/27/2025 2:28 PM EDT [facility] Blood, Urine Negative Negative mg/dL LAB URINALYSIS - AUTOMATED METHOD 05/27/2025 2:28 PM EDT [facility] Urine Urine specimen obtained by clean catch procedure / Unknown Non-blood Collection / Unknown 05/27/2025 2:23 PM EDT 05/27/2025 2:26 PM EDT us Alexandra Johnson MD LAB URINE ORDERABLES Fi nal Result [facility] [address] [place] [address], [place] [phone] * CT Abdomen Pelvis wo Contrast (05/27/2025 1:50 PM EDT) Anatomical Region Laterality Modality Body Computed Tomogra phy 05/27/2025 2:52 PM EDT Impressions 05/27/2025 2:57 PM EDT 1. The left kidney is not seen, and may be surgically or congenitally absent. The right kidney is unremarkable, and there is no urinary stone or hydroureteronephrosis. 2. Aortoiliac atherosclerosis. Report reviewed and signed by : Dr. Robyn Mcdonald on 05/27/2025 2:57 PM. Workstation Name - [id number] -------- FINAL REPORT -------- Dictated By: Robyn Mcdonald Dictated Date: 05/27/2025 14:52 ET Assigned Physician: Robyn Mcdonald Reviewed and Electronically Signed By: Robyn Mcdonald Signed Date: 05/27/2025 14:57 ET Workstation ID: [id number] Transcribed By: Self Edit Transcribed Date: 05/27/2025 14:52 ET Narrative 05/27/2025 2:[address] OF THE ABDOMEN AND PELVIS WITHOUT IV CONTRAST CLINICAL HISTORY: Cr elevation, urologic obstruction? TECHNIQUE: Serial axial images obtained. Sagittal reconstructed images obtained. Coronal reconstructed images obtained. Exam is performed without intravenous contrast. Per PQRS, CT exam is performed using one or more of the following dose reduction techniques: Automated exposure control, adjustment of the mA and/or KV according to patient size, or use of iterative reconstruction techniques. COMPARISON: None FINDINGS: HEART: Normal sized heart. LOWER THORAX: No pleural effusion seen. No consolidation. VISUALIZED CHEST DORSEY: Visualized chest dorsey are unremarkable. VISCERA: Appearance is unremarkable. VASCULATURE: Aortoiliac atherosclerosis. ESOPHAGUS: Visualized portions of the esophagus are unremarkable. STOMACH: Appearance is unremarkable. PANCREAS: Appearance is unremarkable. GALLBLADDER: Status post cholecystectomy. LIVER: Appearance is unremarkable. ADRENALS: Appearance is unremarkable. SPLEEN: Appearance is unremarkable. KIDNEYS: The left kidney is not seen, and may be surgically or congenitally absent. Unremarkable right kidney. No urinary stone or hydroureteronephrosis. BLADDER: Appearance is unremarkable. GENITAL: Appearance is unremarkable. SMALL BOWEL: Appearance is unremarkable. Negative for small bowel dilatation. APPENDIX: Normal appendix. COLON: Appearance is unremarkable. ABDOMINAL/PELVIC DORSEY: Small fat-containing umbilical hernia. BONES: Degenerative changes of the spine, including degenerative disc disease at L5-S1. Procedure Note Robyn Mcdonald MD - 05/27/2025 CT OF THE ABDOMEN AND PELVIS WITHOUT IV CONTRAST CLINICAL HISTORY: Cr elevation, urologic obstruction? TECHNIQUE: Serial axial images obtained. Sagittal reconstructed images obtained. Coronal reconstructed images obtained. Exam is performed without intravenous contrast. Per PQRS, CT exam is performed using one or more of the following dosereduction techniques: Automated exposure control, adjustment of the mAand/or KV according to patient size, or use of iterative reconstructiontechniques. COMPARISON: None FINDINGS: HEART: Normal sized heart. LOWER THORAX: No pleural effusion seen. No consolidation. VISUALIZED CHEST DORSEY: Visualized chest dorsey are unremarkable. VISCERA: Appearance is unremarkable. VASCULATURE: Aortoiliac atherosclerosis. ESOPHAGUS: Visualized portions of the esophagus are unremarkable. STOMACH: Appearance is unremarkable. PANCREAS: Appearance is unremarkable. GALLBLADDER: Status post cholecystectomy. LIVER: Appearance is unremarkable. ADRENALS: Appearance is unremarkable. SPLEEN: Appearance is unremarkable. KIDNEYS: The left kidney is not seen, and may be surgically orcongenitally absent. Unremarkable right kidney. No urinary stone orhydroureteronephrosis. BLADDER: Appearance is unremarkable. GENITAL: Appearance is unremarkable. SMALL BOWEL: Appearance is unremarkable. Negative for small boweldilatation. APPENDIX: Normal appendix. COLON: Appearance is unremarkable. ABDOMINAL/PELVIC DORSEY: Small fat-containing umbilical hernia. BONES: Degenerative changes of the spine, including degenerative discdisease at L5-S1. IMPRESSION: 1. The left kidney is not seen, and may be surgically or congenitallyabsent. The right kidney is unremarkable, and there is no urinary stoneor hydroureteronephrosis. 2. Aortoiliac atherosclerosis. Report reviewed and signed by : Dr. Robyn Mcdonald on 05/27/2025 2:57 PM.Workstation Name - [id number] -------- FINAL REPORT -------- Dictated By: Robyn Mcdonald Dictated Date: 05/27/2025 14:52 ET Assigned Physician: Robyn Mcdonald Reviewed and Electronically Signed By: Robyn Mcdonald Signed Date: 05/27/2025 14:57 ET Workstation ID: [id number] Transcribed By: Self Edit Transcribed Date: 05/27/2025 14:52 ET us Jaylin GILL IMG CT PROCEDURES Final Res ult * Troponin I high sensitivity (05/27/2025 11:43 AM EDT) High Sensitivity Troponin I 3 0 - 14 ng/L LAB CHEMISTRY METHOD 05/27/2025 12:13 PM EDT [facility] Blood Venous blood specimen / Unknown Venipuncture / Unknown 05/27/2025 11:43 AM EDT 05/27/2025 11:45 AM EDT [facility] - 05/27/2025 12:13 PM EDT HSTnI results stratify to HIGH RISK category if any value >100 ng/L or delta at 1 hour is greater than or equal to 15 ng/L (male and female). Note: Delta values are not applicable if symptoms began more than 12 hours pre-arrival. Risk stratification should include the calculation of the HEART score. Testing performed using [employer] Access AccuTnI+3 Assay. us Alexandra Johnson MD LAB BLOOD ORDERABLES Fi nal Result [facility] [address] [place] [address], [place] [phone] * C-reactive protein (05/27/2025 11:43 AM EDT) [facility] C-Reactive Protein <0.5 <=0.9 mg/dL LAB CHEMISTRY METHOD 05/27/2025 4:44 PM EDT [facility] Blood Venous blood specimen / Unknown Venipuncture / Unknown 05/27/2025 11:43 AM EDT 05/27/2025 11:45 AM EDT Alexandra Johnson MD LAB BLOOD ORDERABLES Fi nal Result Performing Organization Address [facility]/ZIP Co de Phone Number [facility] [address] [place] [address], [place] [phone] * (ABNORMAL) Comprehensive metabolic panel (05/27/2025 11:43 AM EDT) [facility] Sodium 132(L) 135 - 145 mmol/L LAB CHEMISTRY METHOD 05/27/2025 12:09 PM EDT [facility] Potassium 4.0 3.5 - 5.1 mmol/L LAB CHEMISTRY METHOD 05/27/2025 12:09 PM EDT [facility] Comment:Slight Hemolysis may affect test result(s). Chloride 100 98 - 107 mmol/L LAB CHEMISTRY METHOD 05/27/2025 12:09 PM EDT [facility] CO2 21(L) 24 - 32 mmol/L LAB CHEMISTRY METHOD 05/27/2025 12:09 PM EDT [facility] Anion Gap 11 5 - 14 LAB CHEMISTRY METHOD 05/27/2025 12:09 PM [facility] Glucose 96 70 - 199 mg/dL LAB CHEMISTRY METHOD 05/27/2025 12:09 PM [facility] BUN 33(H) 7 - 17 mg/dL LAB CHEMISTRY METHOD 05/27/2025 12:09 PM [facility] Creatinine 3.15(H) 0.50 - 1.00 mg/dL LAB CHEMISTRY METHOD 05/27/2025 12:09 PM [facility] eGFR 18(L) >=60 mL/min/1. 73m2 LAB CHEMISTRY METHOD 05/27/2025 12:09 PM [facility] Comment:Calculation based on the Chronic Kidney Disease Epidemiology Collaboration (CKD-EPI) equation refit without adjustment for race. BUN/Creatinine Ratio 10.5(L) 12.0 - 20.0 LAB CHEMISTRY METHOD 05/27/2025 12:09 PM [facility] Calcium 9.7 8.4 - 10.2 mg/dL LAB CHEMISTRY METHOD 05/27/2025 12:09 PM [facility] AST (SGOT) 18 5 - 40 unit/L LAB CHEMISTRY METHOD 05/27/2025 12:09 PM [facility] Comment:Slight Hemolysis may affect test result(s). ALT (SGPT) 8 7 - 52 unit/L LAB CHEMISTRY METHOD 05/27/2025 12:09 PM [facility] Alkaline Phosphatase 50 34 - 104 unit/L LAB CHEMISTRY METHOD 05/27/2025 12:09 PM [facility] Total Protein 7.7 6.4 - 8.5 g/dL LAB CHEMISTRY METHOD 05/27/2025 12:09 PM [facility] Albumin 4.4 3.5 - 5.0 g/dL LAB CHEMISTRY METHOD 05/27/2025 12:09 PM [facility] Total Bilirubin 0.4 0.3 - 1.0 mg/dL LAB CHEMISTRY METHOD 05/27/2025 12:09 PM EDT [facility] Blood Venous blood specimen / Unknown Venipuncture / Unknown 05/27/2025 11:43 AM EDT 05/27/2025 11:45 AM EDT Alexandra Johnson MD LAB BLOOD ORDERABLES Fi nal Result Performing Organization Address [facility] de Phone Number [facility] [address] [place] [address], [place] [phone] * ECG 12 lead (05/27/2025 11:41 AM EDT) Ventricular Rate ECG 117 BPM GEMUSE Atrial Rate 117 BPM GEMUSE P-R Interval 116 ms GEMUSE QRS Duration 84 ms GEMUSE Q-T Interval 314 ms GEMUSE QTc 438 ms GEMUSE P Wave [place] 44 degrees GEMUSE R [place] 48 degrees GEMUSE T [place] 23 degrees GEMUSE ECG Interpretation Sinus tachycardia Otherwise normal ECG No previous ECGs available Confirmed by Jude Baptiste ([id number]) on 05/29/2025 12:45:17 PM GEMUSE 05/27/2025 11:4 1 AM EDT 05/29/2025 12:45 PM EDT us Alexandra Johnson MD ECG ORDERABLES Final R esult Performing Organization Address City/[facility] Co de Phone Number GEMUSE from Last 3 Months Insurance AETNA AETNA Advance Directives * Full Code - Default (Latest Code Status on File) Date Activated Date Inactivated Comments 05/27/2025 4:02 PM 05/29/2025 3:03 PM This is order is used when code status has not been discussed with the patient, or code status is otherwise unknown/unconfirmed To update the patient's code status, place a code status order. Do not modify or discontinue any currently active code status orders. Care Teams Balancer Relationship Specialty Start Date End Date Naima Ashraf NP [address] [place] [address] PCP - General Internal Medicine 06/17/25
--- OUTSIDE RECORDS SUMMARY | 2025-06-23 11:26 | XMS_ITS ---
Author Name [facility] Organization Unknown Results Test Name/Text Value Interpretation Date Range Source Magnesium SerPl-mCnc 2.2 mg/dL 05/29/2025 1.7 - 2.8 [facility] CO2 SerPl-sCnc 27.0 mmol/L 05/29/2025 24 - 32 [facility] Calcium SerPl-mCnc 8.8 mg/dL 05/29/2025 8.4 - 10.2 [facility] Anion Gap SerPl Calc-sCnc 7.0 05/29/2025 5 - 14 [facility] Creat SerPl-mCnc 1.85 mg/dL Above high normal 05/29/2025 0.5 - 1 [facility] Chloride SerPl-sCnc 103.0 mmol/L 05/29/2025 98 - 1 07 [facility] BUN SerPl-mCnc 20.0 mg/dL Above high normal 05/29/2025 7 - 1 7 [facility] eGFRcr SerPlBld CKD-EPI 2020 33.0 mL/min/1.73m2 Below low normal 05/29/2025 - [facility] Sodium SerPl-sCnc 137.0 mmol/L 05/29/2025 135 - 14 5 [facility] BUN/Creat SerPl 10.8 Below low normal 05/29/2025 12 - 2 0 [facility] Glucose SerPl-mCnc 73.0 mg/dL 05/29/2025 70 - 199 [facility] Potassium SerPl-sCnc 4.1 mmol/L 05/29/2025 3.5 - 5.1 [facility] CK SerPl-cCnc 40.0 unit/L 05/28/2025 30 - 135 [facility] Calcium SerPl-mCnc 8.3 mg/dL Below low normal 05/28/2025 8.4 - 10.2 [facility] Glucose SerPl-mCnc 81.0 mg/dL 05/28/2025 70 - 199 [facility] Chloride SerPl-sCnc 107.0 mmol/L 05/28/2025 98 - 1 07 [facility] CO2 SerPl-sCnc 24.0 mmol/L 05/28/2025 24 - 32 [facility] eGFRcr SerPlBld CKD-EPI 2020 25.0 mL/min/1.73m2 Below low normal 05/28/2025 - [facility] Sodium SerPl-sCnc 136.0 mmol/L 05/28/2025 135 - 14 5 [facility] BUN SerPl-mCnc 25.0 mg/dL Above high normal 05/28/2025 7 - 1 7 [facility] Creat SerPl-mCnc 2.31 mg/dL Above high normal 05/28/2025 0.5 - 1 [facility] Anion Gap SerPl Calc-sCnc 5.0 05/28/2025 5 - 14 [facility] Potassium SerPl-sCnc 4.0 mmol/L 05/28/2025 3.5 - 5.1 [facility] BUN/Creat SerPl 10.8 Below low normal 05/28/2025 12 - 2 0 [facility] Vit B12 SerPl-mCnc 149.0 pcg/mL Below low normal 05/28/2025 180 - 914 [facility] Folate SerPl-mCnc >24.0 ng/ml 05/28/2025 - [facility] Iron SerPl-mCnc 125.0 mcg/dL 05/28/2025 37 - 170 [facility] TIBC SerPl-mCnc 205.0 mcg/dL Below low normal 05/28/2025 250 - 450 [facility] Iron Satn MFr SerPl 61.0 % Above high normal 05/28/2025 2 0 - 45 [facility] UIBC SerPl-mCnc 80.0 mcg/dL Below low normal 05/28/2025 155 - 355 [facility] MCH RBC Qn Auto 33.1 pcg Above high normal 05/28/2025 25 - 33 [facility] Basophils NFr Bld Auto 0.4 % 05/28/2025 0 - 2 [facility] RBC Auto 98.8 FL 05/28/2025 78 - 100 [facility] Platelet # Bld Auto 283.0 K/mcL 05/28/2025 150 - 4 50 [facility] Eosinophil # Bld Auto 0.24 K/mcL 05/28/2025 0 - 0.5 [facility] Lymphocytes NFr Bld Auto 36.6 % 05/28/2025 20 - 48 [facility] MCHC RBC Auto-EntMCnc 33.5 g/dL 05/28/2025 32 - 36 [facility] Hgb Bld-mCnc 8.2 g/dL Below low normal 05/28/2025 12.5 - 16 [facility] Lymphocytes # Bld Auto 1.76 K/mcL 05/28/2025 1 - 3.2 [facility] Neutrophils # Bld Auto 2.58 K/mcL 05/28/2025 1.8 - 7.8 [facility] Monocytes NFr Bld Auto 4.2 % 05/28/2025 2 - 12 [facility] RBC # Bld Auto 2.48 M/mcL Below low normal 05/28/2025 4.2 - 5.4 [facility] Monocytes # Bld Auto 0.2 K/mcL 05/28/2025 0 - 0.8 [facility] Hct VFr Bld Auto 24.5 % Below low normal 05/28/2025 37 - 47 [facility] RDW RBC Auto 14.8 % 05/28/2025 12.1 - 16.2 [facility] PMV Bld Auto 9.2 FL 05/28/2025 7.4 - 11.4 [facility] Neutrophils NFr Bld Auto 53.6 % 05/28/2025 44 - 74 [facility] Basophils # Bld Auto <0.03 K/mcL 05/28/2025 0 - 0.2 [facility] WBC # Bld Auto 4.8 K/mcL 05/28/2025 4 - 10.5 [facility] Eosinophil NFr Bld Auto 5.0 % 05/28/2025 0 - 6 [facility] C4 SerPl-mCnc 50.0 mg/dL 05/28/2025 19 - 52 [facility] C3 SerPl-mCnc 126.0 mg/dL 05/28/2025 87 - 200 [facility] Test performance info Spec See Below 06/07/2025 [facility] ANCA Ab Titr Ser IF <1:20 06/01/2025 - [facility] p-ANCA Titr Ser IF <1:20 06/01/2025 - [facility] dsDNA IgG SerPl IA-aCnc 1.7 IU/mL 06/01/2025 - 10 [facility] CHAD Pat Ser IF-Imp TNP 06/01/2025 [facility] CHAD Ser Ql HEp2 subst Negative 06/01/2025 - [facility] CHAD Titr Ser HEp2 subst TNP 06/01/2025 - [facility] Rheumatoid fact SerPl-aCnc <10.0 I Unit/mL 05/28/2025 - [facility] LACTIC ACID 0.9 mmol/L 05/27/2025 - [facility] Glucose Ur Ql Negative 05/27/2025 - [facility] Clarity Ur Clear 05/27/2025 - [facility] Nitrite Ur Ql Negative 05/27/2025 - [facility] pH Ur 5.5 pH 05/27/2025 5 - 8 [facility] Ketones Ur-mCnc Negative 05/27/2025 - [facility] Color Ur Straw Abnormal 05/27/2025 - [facility] Hgb Ur Ql Negative 05/27/2025 - [facility] Leukocyte esterase Ur Ql Strip Trace Abnormal 05/27/2025 - [facility] Prot Ur Strip-mCnc Negative 05/27/2025 - [facility] Sp Gr Ur <=1.005 05/27/2025 1.005 - 1.03 [facility] CRP SerPl-mCnc <0.5 mg/dL 05/27/2025 - [facility] Magnesium SerPl-mCnc 1.8 mg/dL 05/27/2025 1.7 - 2.8 [facility] Troponin I SerPl HS-mCnc 3.0 ng/L 05/27/2025 0 - 14 [facility] Prot SerPl-mCnc 7.7 g/dL 05/27/2025 6.4 - 8.5 [facility] Calcium SerPl-mCnc 9.7 mg/dL 05/27/2025 8.4 - 10.2 [facility] Potassium SerPl-sCnc 4.0 mmol/L 05/27/2025 3.5 - 5.1 [facility] Albumin SerPl-mCnc 4.4 g/dL 05/27/2025 3.5 - 5 [facility] Glucose SerPl-mCnc 96.0 mg/dL 05/27/2025 70 - 199 [facility] ALT SerPl-cCnc 8.0 unit/L 05/27/2025 7 - 52 [facility]_ [facility] BUN SerPl-mCnc 33.0 mg/dL Above high normal 05/27/2025 7 - 1 7 [facility] BUN/Creat SerPl 10.5 Below low normal 05/27/2025 12 - 2 0 [facility] CO2 SerPl-sCnc 21.0 mmol/L Below low normal 05/27/2025 24 - 32 [facility] Sodium SerPl-sCnc 132.0 mmol/L Below low normal 05/27/2025 1 35 - 145 [facility] Creat SerPl-mCnc 3.15 mg/dL Above high normal 05/27/2025 0.5 - 1 [facility] Anion Gap SerPl Calc-sCnc 11.0 05/27/2025 5 - 14 [facility] Bilirub SerPl-mCnc 0.4 mg/dL 05/27/2025 0.3 - 1 [facility] AST SerPl-cCnc 18.0 unit/L 05/27/2025 5 - 40 CT [facility] eGFRcr SerPlBld CKD-EPI 2020 18.0 mL/min/1.73m2 Below low normal 05/27/2025 - [facility] Chloride SerPl-sCnc 100.0 mmol/L 05/27/2025 98 - 1 07 [facility] ALP SerPl-cCnc 50.0 unit/L 05/27/2025 34 - 104 [facility] RBC # Bld Auto 3.11 M/mcL Below low normal 05/27/2025 4.2 - 5.4 [facility] Basophils NFr Bld Auto 0.7 % 05/27/2025 0 - 2 [facility] WBC # Bld Auto 9.0 K/mcL 05/27/2025 4 - 10.5 [facility] MCH RBC Qn Auto 33.1 pcg Above high normal 05/27/2025 25 - 33 [facility] Platelet # Bld Auto 359.0 K/mcL 05/27/2025 150 - 4 50 [facility] Eosinophil # Bld Auto 0.14 K/mcL 05/27/2025 0 - 0.5 [facility] Hct VFr Bld Auto 31.0 % Below low normal 05/27/2025 37 - 47 [facility] RBC Auto 99.7 FL 05/27/2025 78 - 100 [facility] Eosinophil NFr Bld Auto 1.6 % 05/27/2025 0 - 6 [facility] Neutrophils # Bld Auto 6.88 K/mcL 05/27/2025 1.8 - 7.8 [facility] PMV Bld Auto 9.1 FL 05/27/2025 7.4 - 11.4 [facility] Lymphocytes NFr Bld Auto 17.2 % Below low normal 05/27/2025 20 - 48 [facility] Hgb Bld-mCnc 10.3 g/dL Below low normal 05/27/2025 12.5 - 16 [facility] Monocytes NFr Bld Auto 3.7 % 05/27/2025 2 - 12 [facility] MCHC RBC Auto-EntMCnc 33.2 g/dL 05/27/2025 32 - 36 [facility] Neutrophils NFr Bld Auto 76.5 % Above high normal 05/27/2025 44 - 74 [facility] RDW RBC Auto 15.1 % 05/27/2025 12.1 - 16.2 [facility] Monocytes # Bld Auto 0.33 K/mcL 05/27/2025 0 - 0.8 [facility] Lymphocytes # Bld Auto 1.55 K/mcL 05/27/2025 1 - 3.2 [facility] Basophils # Bld Auto 0.06 K/mcL 05/27/2025 0 - 0.2 [facility] History of Medication Use Medication Directions Dispensed Refills Start Date End Date Status cyanocobalamin (VITAMIN B-12) 1,000 mcg tablet Take 1 tablet (1,000 mcg total) by mouth 1 (one) time each day. 5 active cyanocobalamin (VITAMIN B-12) tablet 1,000 mcg 1,000 mcg, oral, Daily, First dose on Fri05/28/25 at 2145 5 active diphenhydrAMINE (BENADRYL) injection 25 mg 25 mg, intravenous, Every 6 hours PRN, itching, allergies, Starting on Fri05/29/25 at 1046 5 active cyclobenzaprine (FLEXERIL) tablet 10 mg 10 mg, oral, Nightly, First dose on Fri05/27/25 at 2100 5 active magnesium hydroxide (MILK OF MAGNESIA) 400 mg/5 mL suspension 30 mL 30 mL, oral, 2 times daily, First dose on Fri05/28/25 at 1115, Follow dose with 8 oz of water. 5 active melatonin tablet 6 mg 6 mg, oral, Nightly PRN, sleep, Starting on Fri05/27/25 at 2225 5 active metoprolol tartrate (LOPRESSOR) tablet 25 mg 25 mg, oral, 2 times daily, First dose on Fri05/27/25 at 2100 5 active senna-docusate (PERICOLACE) 8.6-50 mg per tablet 1 tablet 1 tablet, oral, 2 times daily, First dose on Fri05/27/25 at 2100, Bowel Regimen - for prevention of constipation 5 active sodium chloride 0.9 % bolus 1,000 mL 1,000 mL, intravenous, at 2,000 mL/hr, Administer over 30 Minutes, Once, On Fri05/27/25 at 1152, For 1 dose 5 05/27/20 25 completed sodium chloride 0.9 % bolus 500 mL 500 mL, intravenous, at 1,000 mL/hr, Administer over 30 Minutes, Once, On Fri05/27/25 at 1323, For 1 dose 5 05/27/20 completed acetaminophen (TYLENOL) tablet 650 mg 650 mg, oral, Every 6 hours PRN, mild pain, headaches, fever - temperature GREATER than 38 C (100.4 F), Starting on Fri05/27/25 at 1600 5 active folic acid (FOLVITE) tablet 2 mg 2 mg, oral, Daily, First dose on Fri05/27/25 at 1604 5 active heparin (UFH) injection 5,000 Units 5,000 Units, subcutaneous, Every 8 hours scheduled, First dose on Fri05/27/25 at 1603, Enter Indication for use of heparin (UFH) instead of enoxaparin (LOVENOX): (free text): NA, Indication: VTE Prophylaxis, Indications: Prophylaxis of Venous Thromboembolism 5 active lactated Ringer's infusion 100 mL/hr, intravenous, Continuous, Starting on Fri05/27/25 at 1605 5 active polyethylene glycol (MIRALAX) packet 17 g 17 g, oral, Daily, First dose on Fri05/27/25 at 1603, Bowel Regimen - for prevention of constipation 5 active metoPROLOL SUCCINATE (TOPROL-XL) 25 MG 24 hr tablet Take 25 mg by mouth daily. 5 active lisinopril (PRINIVIL,ZeSTRIL) 10 MG tablet Take 10 mg by mouth daily. 5 active albuterol (PROVENTIL HFA; VENTOLIN HFA) 108 (90 Base) MCG/ACT inhaler Inhale 1 puff. 5 active lisinopriL (PRINIVIL,ZESTRIL) 10 mg tablet Take 1 tablet (10 mg total) by mouth 1 (one) time each day. 05/29/20 25 aborted famotidine (PEPCID) 20 mg tablet Take 1 tablet (20 mg total) by mouth 2 (two) times a day. active methotrexate 2.5 mg tablet Take 6 tablets (15 mg total) by mouth 1 (one) time per week Follow directions carefully, and ask to explain any part you do not understand. Take exactly as directed. active rosuvastatin (CRESTOR) 10 mg tablet Take 1 tablet (10 mg total) by mouth at bedtime. active rosuvastatin (CRESTOR) 10 MG tablet Take 10 mg by mouth daily. active tirzepatide, weight loss, (Zepbound) 12.5 mg/0.5 mL injection Inject 0.5 mL (12.5 mg total) under the skin every 7 (seven) days. active traMADol (ULTRAM) 50 MG tablet Take 50 mg by mouth 4 times daily (every 6 hours) as needed. active Allergies Allergen Reaction Severity Comment Documented Date Source Statu s AMOXICILLIN 05/27/2025 [facility] active AMPICILLIN 05/27/2025 [facility] active CEFACLOR RASH/DERMATITIS 05/18/2024 [facility] acti ve PENICILLINS RASH/DERMATITIS Allergic to amoxicillin, penicillin, ampicillin 05/18/2024 [facility] active Problems Problem Status Onset Date Problem Type Date of Resolution Source MISSY (acute kidney injury) ([facility] V24) active 2025-05-27 [address] [facility] Hyponatremia active EncounterDiagnosisAct [facility] Hypotension, unspecified hypotension type active EncounterDiagnosisAct [facility] Dizziness active EncounterDiagnosisAct [facility] Palpitations active EncounterDiagnosisAct [facility] Encounters Encounter Type Encounter Reason Primary Diagnosis Location Date Emergency Tachycardic, Urgant Care Referral Acute kidney failure, unspecified ([facility] V24) [facility] 05/27/2025 Ambulatory Palpitations Palpitations [facility] 05/27/2025 Care Team Organization Name Specialty Phone Email Start Date End Da te [place] [facility] 05/31/2025 [facility] PHYSICIAN Primary Care 05/31/2025 [facility] NO PHYSICIAN Primary Care 05/27/2025 [facility] 05/27/2025 [place] [facility] 05/27/2025
[2025-06-23 11:33] VITALS: BP 100/80; PULSE 96; O2SAT 98; BMI 30.1
== END 2025-06-23 12:02 | disposition home or self-care (01) ==
LOC: HO.HKAS 10:40
PROVIDERS: PCP Nurse Practitioner Adult Health; Visit Provider Internal Medicine Nephrology
DX: Q60.0 Renal agenesis, unilateral (principal); N17.9 Acute kidney failure, unspecified
CPT/HCPCS: 99204

== ENCOUNTER 2025-07-28 10:09 | Outpatient (AMB) | payer OTHER, SELFPAY ==
--- NOTE | 2025-07-28 10:26 | HO.NEPHOV ---
Vital Signs 07/28/25 10:29 Height 5 ft 1 in Weight 169 lb 4 oz BMI 32.0 BP 110/80 Blood Pressure Location Lt brachial Position Sitting Intake Visit Reasons: 1mnth w labs-LVM Tobacco Feeder Catcher Required: No Accompanied by: Self / Same As Patient Allergies amoxicillin Allergy (Verified 07/28/25 10:28) Unknown ampicillin Allergy (Verified 07/28/25 10:28) Unknown cefaclor Allergy (Verified 07/28/25 10:28) Unknown Penicillins Allergy (Verified 07/28/25 10:28) Unknown HPI Comments Details: I had the privilege of seeing Radha in follow up for MISSY on a back drop of solitary kidney. She has been a resident of [place] until she moved to [place] recently. 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 She never had renal issues in the past. Her PCP had put her on ACEI at sometime for some reason she could not identify. She continued to take it. She continues to have intermittent dizziness and it has been happening since Dec. She has not had insurance for 3 months and had not had any blood work or physician visits. Since she moved to [place] and started working she has insurance and has a PCP. Recently she had dizziness with low BP and tachycardia. She went to Urgent care who referred her to ER where she was found to have MISSY and was admitted in [facility] for 2 days. She had her ACEI held and was given fluids with improvement in renal function. She was D/Jose J and is coming in today for consultation for MISSY. She does not have edema, hematuria, hearing deficits, CAD, CHF, CVA, PAD, flank pain, nausea, vomiting, diarrhea, sinusitis, recent antibiotic intake, sore throat, epistaxis , photosensitivity , skin rashes , excess NSAID intake or any other systemic complaints. She has a diagnosis of Rheumatoid arthritis and has been on methotrexate for a few years. She also has been on Zepbound for sometime [facility] Medical History (Updated 06/23/25 @ 11:56 by Rafy Arnett MD) Solitary kidney, congenital Surgical History History of foot surgery H/O arthroscopic knee surgery S/P cholecystectomy Family History Mother Kidney disease Father Heart disease Social History Alcohol intake: never Patient Tobacco Use Status: Never used Tobacco Review of Systems Const All systems reviewed & are unremarkable except as noted in HPI and below Physical Exam Vital Signs: Last Vital Signs BP 110/80 07/28/25 10:29 BMI result Body Mass Index 32.0 Const General: comfortable and no acute distress Orientation/consciousness: patient oriented x3 HEENT Head: Yes normocephalic Mouth: Normal oral and palatal mucosa present Eyes EOM: EOMs intact bilaterally Neck Neck: Yes supple Resp Auscultation: clear to auscultation bilaterally Cardio Jugular venous distension: no JVD Rate: regular rate GI Palpation (GI): Soft to palpation Auscultation: normal bowel sounds General: Yes no CVA tenderness Back/Spine/Pelvis Back: no CVA tenderness Skin General skin exam: no rashes or lesions noted Neuro General: patient oriented x3 and moves all extremities Extrem General: Yes no pedal edema Assessment & Plan Assessment & Plan (1) Solitary kidney, congenital: Code(s): Q60.0 - Renal agenesis, unilateral Category: Medical (2) MISSY (acute kidney injury): Code(s): N17.9 - Acute kidney failure, unspecified Category: Medical Plan MISSY likely due to tubular injury is resolving . UO good. Recently had imaging( CT scan) which did not show any obstruction. W/U negative. Missy induced by Zepbound( on hold now) and crystal deposition by MTX had been in the differential. ACEI is on hold. No NSAID's. Continue good hydration. C/W Metoprolol 12.5 mg bid. Hold Zepbound for now. W/U ordered. All questions answered. F/U given Orders: Orders Creatinine 3 Months N17.9 - Acute kidney failure, unspecified, Q60.0 - Renal agenesis, unilateral Blood Urea Nitrogen 3 Months N17.9 - Acute kidney failure, unspecified, Q60.0 - Renal agenesis, unilateral Electrolytes 3 Months N17.9 - Acute kidney failure, unspecified, Q60.0 - Renal agenesis, unilateral Coding Level of Care Code Est Pt Level 4 (28707) Diagnoses Solitary kidney, congenital Q60.0 MISSY (acute kidney injury) N17.9
[2025-07-28 10:29] VITALS: BP 110/80; BMI 32.0
--- OUTSIDE RECORDS SUMMARY | 2025-07-28 11:23 | XMS_ITS | Clinical Summary ---
Author Organization [facility] Address [address] [facility] [address] [place] [address] Phone Care Team Providers Care Operating Room Nurse Name Role Phone Saul Pinto DO Primary Care Provider [phone] Saul Pinto DO Unavailable [phone] Catarina Crain MD Unavailable [phone] Myriam Reid PA-C Unavailable [phone] Allergies Active Allergy Reactions Criticality Noted Date [...] high school, GED, job training, learning the Greek language, technical skills, or developing parenting skills)? [...] COLONOSCOPY 2021 MAMMOGRAM 05/20/2024 05/20/2022, 05/20/2022, 02/06/2021 INFLUENZA VACCINE (#1) 2025 COVID-19 VACCINE (1 - 2023-2 5 season) 2025 HEPATITIS A VACCINES Aged Out No long [...] topic Medical Devices Not on file Insurance [facility] [place] [address] [place] [address] [place] [address] [place] [address] [facility] Care Teams Operating Room Nurse Relationship Specialty Start Date End Date Blair Saul DO [address] [place] [address] PCP - General Family Medicine 04/30/24 Saul Pinto DO [address] [place] [address] Referring Physician Family Medicine 04/30/24 Catarina Crain MD [address] [place] [address] [email or web address] Primary Oncologist Medical Oncology 04/30/24 Myriam Reid PA-C [address] [place] [address] [email or web address] Oncology 04/30/24 Additional Source Comments The information contained in this document represents components of the legal health record. It is not the complete legal health record.[facility]
--- OUTSIDE RECORDS SUMMARY | 2025-07-28 11:23 | XMS_ITS | Clinical Summary ---
Author Organization [facility] Address [address] [place] [address] Phone Care Team Providers Care Clerical Office Name Role Phone Naima Ashraf NP Primary Care Provider [phone] Allergies Active Allergy Reactions Criticality Noted Date [...] not understand. Take exactly as directed. Active cyclobenzaprine (FLEXERIL) 10 mg tablet Take 1 tablet [...] day. 30 each 11 05/30/20 26 Active Active Problems Problem Noted Date Diagnosed Date MISSY (acute kidney injury) ([facility] V24) 05/27/20 25 Encounters Date Type Department Care Team Description 05/27/2025 11:33 AM EDT - 05/29/2025 12:30 PM EDT Hospital Encounter [facility] Med Surg [address] [place] [address] Alexandra Johnson MD MISSY (acute kidney injury) ([facility] V24) (Primary Dx); Hyponatremia Discharge Disposition: Home or Self Care from Last 3 Months Surgical History Surgery Date Site/Laterality Comments CHOLECYSTECTOMY TONSILLECTOMY Medical History Medical History Date Comments Asthma Tachycardia Renal agenesis Rheumatoid arthritis ([facility] V24, [facility] V28) Family History Medical History Relation [...] 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 05/29/2025 9:01 AM EDT [facility] Comment:Auto resulted. Blood Venous blood specimen / Unknown 05/29/2025 6:35 AM EDT 05/29/2025 7:56 AM EDT us Alexandra Johnson MD LAB BLOOD ORDERABLES Fi nal Result [facility] [address] [place] [address], [place] [phone] * Magnesium (05/29/2025 6:35 AM EDT) Only the most recent of2 resultswithin the time period is included. [facility] Magnesium 2.2 1.7 - 2.8 mg/dL LAB CHEMISTRY METHOD 05/29/2025 8:38 AM [facility] Blood Venous blood specimen / Unknown Venipuncture / Unknown 05/29/2025 6:35 AM EDT 05/29/2025 7:56 AM EDT Alexandra Johnson MD LAB BLOOD ORDERABLES Fi nal Result [facility] [address] [place] [address], [place] [phone] * (ABNORMAL) Basic metabolic panel (05/29/2025 6:35 AM EDT) Only the most recent of2 resultswithin the time period is included. [facility] Sodium 137 135 - 145 mmol/L LAB CHEMISTRY METHOD 05/29/2025 8:38 AM [facility] Potassium 4.1 3.5 - 5.1 mmol/L LAB CHEMISTRY METHOD 05/29/2025 8:38 AM [facility] Chloride 103 98 - 107 mmol/L LAB CHEMISTRY METHOD 05/29/2025 8:38 AM [facility] CO2 27 24 - 32 mmol/L LAB CHEMISTRY METHOD 05/29/2025 8:38 AM [facility] Anion Gap 7 5 - 14 LAB CHEMISTRY METHOD 05/29/2025 8:38 AM [facility] Glucose 73 70 - 199 mg/dL LAB CHEMISTRY METHOD 05/29/2025 8:38 AM [facility] BUN 20(H) 7 - 17 mg/dL LAB CHEMISTRY METHOD 05/29/2025 8:38 AM [facility] Creatinine 1.85(H) 0.50 - 1.00 mg/dL LAB CHEMISTRY METHOD 05/29/2025 8:38 AM EDT [facility] eGFR 33(L) >=60 mL/min/1. 73m2 LAB CHEMISTRY METHOD 05/29/2025 8:38 AM EDT [facility] Comment:Calculation based on the Chronic Kidney Disease Epidemiology Collaboration (CKD-EPI) equation refit without adjustment for race. BUN/Creatinine Ratio 10.8(L) 12.0 - 20.0 LAB CHEMISTRY METHOD 05/29/2025 8:38 AM EDT [facility] Calcium 8.8 8.4 - 10.2 mg/dL LAB CHEMISTRY METHOD 05/29/2025 8:38 AM EDT [facility] Blood Venous blood specimen / Unknown Venipuncture / Unknown 05/29/2025 6:35 AM EDT 05/29/2025 7:56 AM EDT Alexandra Johnson MD LAB BLOOD ORDERABLES Fi nal Result Performing Organization Address City/[facility]/ZIP Co de Phone Number [facility] [address] [place] [address], [place] [phone] * Creatine kinase (05/28/2025 6:20 AM EDT) Total CK 40 30 - 135 unit/L LAB CHEMISTRY METHOD 05/28/2025 11:24 AM EDT [facility] Blood Venous blood specimen / Unknown Venipuncture / Unknown 05/28/2025 6:20 AM EDT 05/28/2025 7:21 AM EDT us Alexandra Johnson MD LAB BLOOD ORDERABLES Fi nal Result [facility] [address] [place] [address], [place] [phone] * (ABNORMAL) Vitamin B12 and folate (05/28/2025 6:19 AM EDT) [facility] Vitamin B-12 149(L) 180 - 914 pcg/mL LAB CHEMISTRY METHOD 05/28/2025 2:23 PM EDT [facility] Comment:B12 Indeterminate Ra nge: 145-179 pg/mL Folate >24.0 >=3.0 ng/ml LAB CHEMISTRY METHOD 05/28/2025 2:23 PM EDT [facility] Blood Venous blood specimen / Unknown Venipuncture / Unknown 05/28/2025 6:19 AM EDT 05/28/2025 7:21 AM EDT Alexandra Johnson MD LAB BLOOD ORDERABLES Fi nal Result [facility] [address] [place] [address], [place] [phone] * (ABNORMAL) CBC auto differential (05/28/2025 6:19 AM EDT) Only the most recent of2 resultswithin the time period is included. [facility] WBC 4.8 4.0 - 10.5 K/mcL LAB HEMETOLOGY METHOD 05/28/2025 7:39 AM EDT [facility] RBC 2.48(L) 4.20 - 5.40 M/mcL LAB HEMETOLOGY METHOD 05/28/2025 7:39 AM EDT [facility] Hemoglobin 8.2(L) 12.5 - 16.0 g/dL LAB HEMETOLOGY METHOD 05/28/2025 7:39 AM [facility] Hematocrit 24.5(L) 37.0 - 47.0 % LAB HEMETOLOGY METHOD 05/28/2025 7:39 AM [facility] MCV 98.8 78.0 - 100.0 FL LAB HEMETOLOGY METHOD 05/28/2025 7:39 AM [facility] MCH 33.1(H) 25.0 - 33.0 pcg LAB HEMETOLOGY METHOD 05/28/2025 7:39 AM [facility] MCHC 33.5 32.0 - 36.0 g/dL LAB HEMETOLOGY METHOD 05/28/2025 7:39 AM [facility] RDW 14.8 12.1 - 16.2 % LAB HEMETOLOGY METHOD 05/28/2025 7:39 AM [facility] Platelets 283 150 - 450 K/mcL LAB HEMETOLOGY METHOD 05/28/2025 7:39 AM [facility] MPV 9.2 7.4 - 11.4 FL LAB HEMETOLOGY METHOD 05/28/2025 7:39 AM [facility] Neutrophils Relative 53.6 44.0 - 74.0 % LAB HEMETOLOGY METHOD 05/28/2025 7:39 AM [facility] Lymphocytes Relative 36.6 20.0 - 48.0 % LAB HEMETOLOGY METHOD 05/28/2025 7:39 AM [facility] Monocytes Relative 4.2 2.0 - 12.0 % LAB HEMETOLOGY METHOD 05/28/2025 7:39 AM [facility] Eosinophils Relative 5.0 0.0 - 6.0 % LAB HEMETOLOGY METHOD 05/28/2025 7:39 AM [facility] Basophils Relative 0.4 0.0 - 2.0 % LAB HEMETOLOGY METHOD 05/28/2025 7:39 AM [facility] Neutrophils Absolute 2.58 1.80 - 7.80 K/mcL LAB HEMETOLOGY METHOD 05/28/2025 7:39 AM [facility] Lymphocytes Absolute 1.76 1.00 - 3.20 K/mcL LAB HEMETOLOGY METHOD 05/28/2025 7:39 AM EDT [facility] Monocytes Absolute 0.20 0.00 - 0.80 K/mcL LAB HEMETOLOGY METHOD 05/28/2025 7:39 AM EDT [facility] Eosinophils Absolute 0.24 0.00 - 0.50 K/[facility] LAB HEMETOLOGY METHOD 05/28/2025 7:39 AM EDT [facility] Basophils Absolute <0.03 0.00 - 0.20 K/[facility] LAB HEMETOLOGY METHOD 05/28/2025 7:39 AM EDT [facility] Blood Venous blood specimen / Unknown Venipuncture / Unknown 05/28/2025 6:19 AM EDT 05/28/2025 7:21 AM EDT Alexandra Johnson MD LAB BLOOD ORDERABLES Fi nal Result [facility] [address] [place] [address], [place] [phone] * (ABNORMAL) Iron and TIBC (05/28/2025 6:19 AM EDT) Iron 125 37 - 170 mcg/dL LAB CHEMISTRY METHOD 05/28/2025 2:01 PM EDT [facility] UIBC 80(L) 155 - 355 mcg/dL LAB CHEMISTRY METHOD 05/28/2025 2:01 PM EDT [facility] TIBC 205(L) 250 - 450 mcg/dL LAB CHEMISTRY METHOD 05/28/2025 2:01 PM EDT [facility] Iron Saturation 61(H) 20 - 45 % LAB CHEMISTRY METHOD 05/28/2025 2:01 PM EDT [facility] Blood Venous blood specimen / Unknown Venipuncture / Unknown 05/28/2025 6:19 AM EDT 05/28/2025 7:21 AM EDT us Alexandra Johnson MD LAB BLOOD ORDERABLES Fi nal Result [facility] [address] [place] [address], [place] [phone] * C3 complement (05/28/2025 6:16 AM EDT) C3 Complement 126 87 - 200 mg/dL LAB CHEMISTRY METHOD 05/28/2025 7:10 PM EDT [facility] Blood Venous blood specimen / Unknown Venipuncture / Unknown 05/28/2025 6:16 AM EDT 05/28/2025 11:07 AM EDT us Alexandra Johnson MD LAB BLOOD ORDERABLES Fi nal Result Performing Organization Address City/[facility]/ZIP Co de Phone Number [facility] [address] [place] [address], [place] [phone] * C4 complement (05/28/2025 6:16 AM EDT) Pathologist [facility] C4 Complement 50 19 - 52 mg/dL LAB CHEMISTRY METHOD 05/28/2025 7:18 PM EDT [facility] Blood Venous blood specimen / Unknown Venipuncture / Unknown 05/28/2025 6:16 AM EDT 05/28/2025 11:07 AM EDT us Alexandra Johnson MD LAB BLOOD ORDERABLES Fi nal Result [facility] [address] [place] [address], [place] [phone] * CHAD IFA with titer and pattern (05/27/2025 7:58 PM EDT) Pathologist [facility] Antinuclear Antibody Negative Negative 07/2025 11:04 AM EDT [facility] Comment:CHAD performed by ind irect immunofluorescence (IFA) using HEp-2 substrate. CHAD Titer TNP <1:80 Titer 06/01/2025 11:04 AM EDT [facility] CHAD Pattern TNP 06/01/2025 11:04 AM EDT [facility] Comment: Test performed at [facility], [address] , [place] [address] Edelmira Sosa MD, PhD - Hardware Press Operator Blood Venous blood specimen / Unknown Venipuncture / Unknown 05/27/2025 7:58 PM EDT 05/27/2025 8:08 PM EDT Alexandra Johnson MD LAB BLOOD ORDERABLES Fi nal Result [facility] [address] [place] [address] * CYCLIC CITRULLINATED PEPTIDE ANTIBODY IGG AND IGA - Miscellaneous Test (05/27/2025 7:58 PM EDT) [facility] Miscellaneous Test See Below 06/07/2025 11:22 AM EDT [facility] Comment: Cyclic Citrullinated Peptide Antibody, IgG [...] be monitored and testing repeated. Performed by [facility] [address] [place] [address] Javon Packer MD, PhD, Dental Coordinator Serum 05/27/2025 7:58 PM EDT 05/31/2025 7:41 AM EDT Alexandra Johnson MD LAB BLOOD ORDERABLES Fi nal Result Performing Organization Address City/[facility]/ZIP Co de Phone Number [facility] [address] [place] [address] * DNA antibody, double-stranded (05/27/2025 7:58 PM EDT) DNA (ds) Antibody 1.7 <10.0 IU/mL 06/01/2025 11:48 AM EDT [facility] Comment: INTERPRETATION: Negative Test performed at [facility], [address] , [place] [address] Edelmira Sosa MD, PhD - Hardware Press Operator Blood Venous blood specimen / Unknown Venipuncture / Unknown 05/27/2025 7:58 PM EDT 05/27/2025 8:08 PM EDT Alexandra Johnson MD LAB BLOOD ORDERABLES Fi nal Result [facility] [address] [place] [address] * Anti-neutrophilic cytoplasmic antibody (05/27/2025 7:58 PM EDT) P-ANCA <1:20 <1:20 Titer 06/01/2025 2:03 PM EDT [facility] C-ANCA <1:20 <1:20 Titer 06/01/2025 2:03 PM EDT [facility] Comment: Test performed at [facility], [address], [place] [address] Edelmira Sosa MD, PhD - Hardware Press Operator Blood Venous blood specimen / Unknown Venipuncture / Unknown 05/27/2025 7:58 PM EDT 05/27/2025 8:08 PM EDT Alexandra Johnson MD LAB BLOOD ORDERABLES Fi nal Result [facility] [address] [place] [address] * Rheumatoid factor (05/27/2025 7:58 PM EDT) Rheumatoid Factor <10.0 <=15.0 I Unit/mL LAB CHEMISTRY METHOD 05/28/2025 2:54 PM EDT [facility] Blood Venous blood specimen / Unknown Venipuncture / Unknown 05/27/2025 7:58 PM EDT 05/27/2025 8:08 PM EDT Alexandra oJhnson MD LAB BLOOD ORDERABLES Fi nal Result [facility] [address] [place] [address], [place] [phone] * Lactate, with reflex (05/27/2025 4:25 PM EDT) LACTIC ACID 0.9 <=2.0 mmol/L LAB BLOOD GAS METHOD 05/27/2025 4:32 PM EDT [facility] ([facility] Blood Venous blood specimen / Unknown Venipuncture / Unknown 05/27/2025 4:25 PM EDT 05/27/2025 4:28 PM EDT us Alexandra Johnson MD LAB BLOOD ORDERABLES Fi nal Result [facility] [address] [place] [address], [place] [phone] * (ABNORMAL) Urinalysis with reflex microscopic and culture (05/27/2025 2:23 PM EDT) Color, Urine Straw(A) Colorless, Yellow LAB URINALYSIS - AUTOMATED METHOD 05/27/2025 2:28 PM EDT [facility] Clarity, Urine Clear Clear LAB URINALYSIS - AUTOMATED METHOD 05/27/2025 2:28 PM [facility] Specific [place] Urine <=1.005 1.005 - 1.030 LAB URINALYSIS - AUTOMATED METHOD 05/27/2025 2:28 PM EDT [facility] pH, Urine 5.5 5.0 - 8.0 pH LAB URINALYSIS - AUTOMATED METHOD 05/27/2025 2:28 PM EDT [facility] Leukocytes, Urine Trace(A) Negative WBCs/mcL LAB URINALYSIS - AUTOMATED METHOD 05/27/2025 2:28 PM [facility] Nitrite, Urine Negative Negative LAB URINALYSIS - AUTOMATED METHOD 05/27/2025 2:28 PM EDT [facility] Protein, Urine Negative Negative mg/dL LAB URINALYSIS - AUTOMATED METHOD 05/27/2025 2:28 PM [facility] Glucose, Urine Negative Negative mg/dL LAB URINALYSIS - AUTOMATED METHOD 05/27/2025 2:28 PM [facility] Ketones, Urine Negative Negative mg/dL LAB URINALYSIS - AUTOMATED METHOD 05/27/2025 2:28 PM [facility] Blood, Urine Negative Negative mg/dL LAB URINALYSIS - AUTOMATED METHOD 05/27/2025 2:28 PM EDT [facility] Urine Urine specimen obtained by clean catch procedure / Unknown Non-blood Collection / Unknown 05/27/2025 2:23 PM EDT 05/27/2025 2:26 PM EDT us Alexanrda Johnson MD LAB URINE ORDERABLES Fi nal Result [facility] [address] [facility] [place] [address], [place] [phone] * CT Abdomen Pelvis wo Contrast (05/27/2025 [...] on 05/27/2025 2:57 PM. Workstation Name - [id number] -------- FINAL REPORT -------- Dictated By: Robyn Mcdonald Dictated Date: 05/27/2025 14:52 ET Assigned Physician: Robyn Mcdonald Reviewed and Electronically Signed By: Robyn Mcdonald Signed Date: 05/27/2025 14:57 ET Workstation ID: [id number] Transcribed By: Self Edit Transcribed Date: 05/27/2025 [...] Mcdonald on 05/27/2025 2:57 PM.Workstation Name - [id number] -------- FINAL REPORT -------- Dictated By: Robyn Mcdonald Dictated Date: 05/27/2025 14:52 ET Assigned Physician: Robyn Mcdonald Reviewed and Electronically Signed By: Robyn Mcdonald Signed Date: 05/27/2025 14:57 ET Workstation ID: [id number] Transcribed By: Self Edit Transcribed Date: 05/27/2025 14:52 ET Jaylin GILL IMG CT PROCEDURES Final Res ult * Troponin I high sensitivity (05/27/2025 11:43 AM EDT) High Sensitivity Troponin I 3 0 - 14 ng/L LAB CHEMISTRY METHOD 05/27/2025 12:13 PM EDT [facility] Blood Venous blood specimen / Unknown Venipuncture / Unknown 05/27/2025 11:43 AM EDT 05/27/2025 11:45 AM EDT Narrative [facility] - 05/27/2025 12:13 PM EDT HSTnI results stratify to HIGH RISK category if any value >100 ng/L or delta at 1 hour is greater than or equal to 15 ng/L (male and female). Note: Delta values are not applicable if symptoms began more than 12 hours pre-arrival. Risk stratification should include the calculation of the HEART score. Testing performed using [employer] Access AccuTnI+3 Assay. us Alexandra Johnson MD LAB BLOOD ORDERABLES Fi nal Result [facility] [address] [place] [address], [place] [phone] * C-reactive protein (05/27/2025 11:43 AM EDT) [facility] C-Reactive Protein <0.5 <=0.9 mg/dL LAB CHEMISTRY METHOD 05/27/2025 4:44 PM [facility] Blood Venous blood specimen / Unknown Venipuncture / Unknown 05/27/2025 11:43 AM EDT 05/27/2025 11:45 AM EDT Alexandra Johnson MD LAB BLOOD ORDERABLES Fi nal Result [facility] [address] [place] [address], [place] [phone] * (ABNORMAL) Comprehensive metabolic panel (05/27/2025 11:43 AM EDT) [facility] Sodium 132(L) 135 - 145 mmol/L LAB CHEMISTRY METHOD 05/27/2025 12:09 PM [facility] Potassium 4.0 3.5 - 5.1 mmol/L LAB CHEMISTRY METHOD 05/27/2025 12:09 PM [facility] Comment:Slight Hemolysis may affect test result(s). Chloride 100 98 - 107 mmol/L LAB CHEMISTRY METHOD 05/27/2025 12:09 PM [facility] CO2 21(L) 24 - 32 mmol/L LAB CHEMISTRY METHOD 05/27/2025 12:09 PM [facility] Anion Gap 11 5 - 14 LAB CHEMISTRY METHOD 05/27/2025 12:09 PM [facility] Glucose 96 70 - 199 mg/dL LAB CHEMISTRY METHOD 05/27/2025 12:09 PM [facility] BUN 33(H) 7 - 17 mg/dL LAB CHEMISTRY METHOD 05/27/2025 12:09 PM [facility] Creatinine 3.15(H) 0.50 - 1.00 mg/dL LAB CHEMISTRY METHOD 05/27/2025 12:09 PM [facility] eGFR 18(L) >=60 mL/min/1. 73m2 LAB CHEMISTRY METHOD 05/27/2025 12:09 PM [facility] Comment:Calculation based on the Chronic Kidney Disease Epidemiology Collaboration (CKD-EPI) equation refit without adjustment for race. BUN/Creatinine Ratio 10.5(L) 12.0 - 20.0 LAB CHEMISTRY METHOD 05/27/2025 12:09 PM [facility] Calcium 9.7 8.4 - 10.2 mg/dL LAB CHEMISTRY METHOD 05/27/2025 12:09 PM [facility] AST (SGOT) 18 5 - 40 unit/L LAB CHEMISTRY METHOD 05/27/2025 12:09 PM [facility] Comment:Slight Hemolysis may affect test result(s). ALT (SGPT) 8 7 - 52 unit/L LAB CHEMISTRY METHOD 05/27/2025 12:09 PM [facility] Alkaline Phosphatase 50 34 - 104 unit/L LAB CHEMISTRY METHOD 05/27/2025 12:09 PM [facility] Total Protein 7.7 6.4 - 8.5 g/dL LAB CHEMISTRY METHOD 05/27/2025 12:09 PM [facility] Albumin 4.4 3.5 - 5.0 g/dL LAB CHEMISTRY METHOD 05/27/2025 12:09 PM [facility] Total Bilirubin 0.4 0.3 - 1.0 mg/dL LAB CHEMISTRY METHOD 05/27/2025 12:09 PM [facility] Blood Venous blood specimen / Unknown Venipuncture / Unknown 05/27/2025 11:43 AM EDT 05/27/2025 11:45 AM EDT Alexandra Johnson MD LAB BLOOD ORDERABLES Fi nal Result Performing Organization Address City/[facility]/ZIP Co de Phone Number [facility] ([facility] [place] [address] [place] [address], [place] [phone] * ECG 12 lead (05/27/2025 11:41 AM EDT) Ventricular Rate ECG 117 BPM GEMUSE Atrial Rate 117 BPM GEMUSE P-R Interval 116 ms GEMUSE QRS Duration 84 ms GEMUSE Q-T Interval 314 ms GEMUSE QTc 438 ms GEMUSE P Wave [place] 44 degrees GEMUSE R [place] 48 degrees GEMUSE T [place] 23 degrees GEMUSE ECG Interpretation Sinus tachycardia Otherwise normal ECG No previous ECGs available Confirmed by Jude Baptiste ([id number]) on 05/29/2025 12:45:17 PM GEMUSE 05/27/2025 11:4 1 AM EDT 05/29/2025 12:45 PM EDT Alexandra Johnson MD ECG ORDERABLES Final R esult Performing Organization Address City/[facility] Co de Phone Number GEMUSE from Last [...] currently active code status orders. Care Teams Clerical Office Relationship Specialty Start Date End Date Naima Ashraf NP [address] [place] [phone] PCP - General Internal Medicine 06/17/25
--- OUTSIDE RECORDS SUMMARY | 2025-07-28 11:24 | XMS_ITS | Clinical Summary ---
Author Organization [facility] Address [address] [place] [address] Care Team Providers Care Resin Shaver Name Role Phone Pcp, No Primary Care [...] Description 05/27/2025 10:00 AM EDT Office Visit [facility] [address] [place], [place] [id number] Bhupinder Coffman MD Nguyen, Nam V, PA [...] POC Glucose 99 MG/DL Lot Number 0 Pot Reliner Pass Pass Blood 05/27/2025 10:2 3 AM [...] 3 Months Insurance [employer] HMO/POS Care Teams Resin Shaver Relationship Specialty Start Date End Date Pcp, No PCP - General General Medicine 05/27/25
--- OUTSIDE RECORDS SUMMARY | 2025-07-28 11:24 | XMS_ITS | Clinical Summary ---
Author Organization [employer] Address [address] [place] [address] [address] [place] [address] Care Team Providers Care Body Specialist Name Role Phone Provider, Not In System [...] 19+ 3-dose series) 1995 Mammogram 05/20/2024 05/20/2022, 0304/2021, 07/13/2019, Additional history exists Pap Smear 05/20/2025 05/20/2022 COVID-19 Vaccine (3 - season) 2025 03/21/2021, 02/05/2021 Influenza Vaccine (#1) 2025 10/06/2019, 2016 Zoster [...] EDT) HPV, High-Risk Not Detected Not Detected [facility] 05/20/2022 4:10 PM EDT us Albina Church ANP-BC HISTORICAL/NON ORDE RABLE LABS Final Result [facility] [address] * PAP SMEAR (05/20/2022 4:10 PM EDT) Clinical History None [facility] Patient Status None [facility] Specimen Adequacy Satisfactory for evaluation, endocervical/trans formation zone component present [facility] Specimen Adequacy Partially obscuring blood and inflammation [facility] High Risk Factors None [facility] HPV Reflex? No [facility] Interpretation Negative for intraepithelial lesion or malignancy [facility] Interpretation [facility] Genotype Reflex No [facility] LMP Not given [facility] Screening or Diagnostic Screening [facility] Case Report Pap Test Case: [id number] [facility] Case Report Authorizing Provider: Albina Vela MD Collected: 05/20/2022 1610 [facility] Case Report Ordering Location: [facility] Received: 05/21/2022 1610 [facility] Case Report [facility] Case Report First Screen: Josefina Borrero [facility] Case Report CT(ASCP) [facility] Case Report Specimen: ThinPrep Pap Test with Imaging, Cervix [facility] Disclaimer SEE NOTES [facility] [...] ANP-BC HISTORICAL/NON ORDE RABLE LABS Final Result [facility] [place] [address], [place] * BI MAMMOGRAM SCREENING TOMOSYNTHESIS BILATERAL [...] Recently Relevant to Health Maintenance Care Teams Body Specialist Relationship Specialty Start Date End Date Provider, Not In System PCP - General Family Medicine 12/31/23
== END 2025-07-28 10:44 | disposition home or self-care (01) ==
LOC: HO.HKAS 10:09
PROVIDERS: PCP Nurse Practitioner Adult Health; Visit Provider Internal Medicine Nephrology
DX: Q60.0 Renal agenesis, unilateral (principal); N17.9 Acute kidney failure, unspecified
CPT/HCPCS: 99214